=== PATIENT | female | born 1995 | race Caucasian/White ===

== ENCOUNTER 2019-06-23 12:03 | Emergency (ER) | payer MEDICAID, SELFPAY ==
[2019-06-23 12:05] VITALS: BP 155/97; PULSE 92; RESP 18; TEMP 36.7; BMI 41.8
--- NOTE | 2019-06-23 12:21 | ED_ITS ---
Entered by Melissa Schwartz, acting as scribe for Jun 23, 2019 12:03 HPI - Dizziness General: Chief Complaint: Dizziness Stated Complaint: 7 weeks preg and dizzyness Time Seen by Provider: 06/23/19 12:21 Source: patient Mode of arrival: ambulatory Limitations: no limitations History of Present Illness: HPI Narrative: 23 yo Female presents to ED with complaint of dizziness. Pt states that she was at work last night when she got dizzy/light headed and almost fell. Pt states that she did fall another time last night but on a patient's mat so she didn't hit the floor. Pt states that she is 6-7 weeks . MD elicited complaint: dizziness, lightheadedness and near syncope Onset (ago): day(s) (last night) Timing: sudden onset Severity: mild Description: lightheadedness Exacerbating factors: nothing Relieving factors: nothing Associated symptoms: Denies chills, nausea or vomiting Review of Systems General: Reports: 10 or more systems reviewed and unremarkable except in HPI and below Const: Denies: fever or chills Card: Reports: lightheadedness GI: Denies: abdominal pain, nausea or vomiting PFSH ED PFSH: Statuses (acute, chronic, etc) shown below reflect problem list status as previously entered and may not be historically accurate Medical History (Acute) Surgical History (Updated 06/23/19 @ 12:36 by Melissa Schwartz) History of (Acute) Social History (Updated 06/23/19 @ 12:33 by Melissa Schwartz) Smoking and tobacco status: never smoked Second hand smoke exposure: No Female Reproductive History: Date of last menstrual period: 05/09/19 Physical Exam Const: COMMON NORMALS: no apparent distress, average body habitus, oriented x3, no limitations, healthy appearing, alert and well nourished HENMT: COMMON NORMALS: normocephalic, head/scalp atraumatic, hearing grossly normal bilaterally, external ears normal, EAC's normal, TM's normal bilaterally, external nose normal, nasal mucous membranes and turbinates normal, oropharynx normal, dentition normal and gingiva normal; oral mucous membranes not moist HEAD & SCALP: normocephalic and atraumatic NOSE: external nose normal and nasal mucous membranes and turbinates normal EXTERNAL EAR: Yes external ears normal EXTERNAL AUDITORY CANAL: EAC's normal TYMPANIC MEMBRANE: TM's normal bilaterally Eye: COMMON NORMALS: PERRL, EOMs intact bilaterally, conjunctivae normal, no scleral icterus, no papilledema, normal visual rapp by confrontation and fundi normal bilaterally CONJUNCTIVA: Yes conjunctivae normal PUPIL: Yes PERRL DIRECT OPHTHALMOSCOPY: Yes no papilledema and Yes fundi normal bilaterally Neck/C-Spine: COMMON NORMALS: full ROM, no lymphadenopathy, supple, no meni ngeal signs, no JVD, thyroid normal and no carotid bruits THYROID: thyroid normal Chest: COMMONS NORMALS: inspection of chest normal and palpation of chest normal Resp: COMMON NORMALS: normal respiratory effort, no retractions, no use of accessory muscles, clear to auscultation bilaterally and percussion normal AUSCULTATION: clear to auscultation bilaterally PERCUSSION: percussion normal Cardio: COMMON NORMALS: no JVD, regular rate, regular rhythm, S1 normal heart sound, S2 normal heart sound, no gallops, no clicks, no murmurs, no rub and peripheral pulses 2+ throughout RATE: regular rate RHYTHM: regular rhythm HEART SOUNDS: S1 normal and S2 normal PERIPHERAL PULSES: pulses 2+ throughout GI: COMMON NORMALS: normal to inspection, nondistended, normoactive bowel sounds, soft to palpation, non-tender, no hepatosplenomegaly, no masses and no bruits PALPATION: Yes soft and Yes no hepatosplenomegaly : COMMON NORMALS: Yes no CVA tenderness BLADDER/KIDNEY EXAM: Yes no CVA tenderness Back/Pelvis: COMMON NORMALS: no CVA tenderness, thoracic and lumbar spine normal to inspection, no thoracic nor lumbar tenderness, thoraco-lumbar ROM normal and straight leg raise negative bilaterally Extremity: COMMON NORMALS: normal to inspection, full ROM, normal capillary refill, no joint enlargement, no clubbing, cyanosis or edema, no calf tenderness and no pedal edema Neuro: COMMON NORMALS: oriented x3 SENSORIUM/ORIENTATION: Yes alert MENINGEAL SIGNS: Yes no meningeal signs Skin: COMMON NORMALS: no rashes or lesions noted, no wounds, skin turgor normal, no jaundice, no petechiae and no mottling GENERAL SKIN EXAM: no rashes or lesions noted and turgor normal Course Vital Signs: Vital signs: Vital Signs Temperature 98.0 F 06/23/19 12:05 Pulse Rate 86 06/23/19 13:34 Respiratory Rate 18 06/23/19 12:05 Blood Pressure 161/84 06/23/19 13:34 Pulse Oximetry 97 06/23/19 13:34 MDM - Dizziness Lab Data: Labs: Lab Results 06/23/19 06/23/19 06/23/19 Range/Units 12:55 13:13 13:13 WBC 11.6 H (4.0-10.0) 10^3/ uL RBC 4.37 (4.1-5.3) 10^6/u L Hgb 11.9 (11.5-15.3) g/dL Hct 36.9 L (37.0-47.0) % MCV 84.4 (81-99) fL MCH 27.2 L (28.0-34.0) pg MCHC 32.2 (30.0-36.0) g/dL RDW 14.9 (12.1-15.1) % Plt Count 311 (130-400) 10^3/c mm MPV 10.0 (7.4-10.4) fL Neut % (Auto) 72.4 % Lymph % (Auto) 20.2 % [place] % (Auto) 5.8 % Eos % (Auto) 0.9 % Baso % (Auto) 0.2 % Neut # (Auto) 8.4 H (1.8-7.7) 10^3/u L Lymph # (Auto) 2.4 (0.8-4.8) 10^3/u L [place] # (Auto) 0.7 (0.2-0.9) 10^3/u L Eos # (Auto) 0.1 (0.0-0.8) 10^3/u L Baso # (Auto) 0.0 (0.0-0.1) 10^3/u L Nucleated RBC % (a uto) 0 % Nucleated RBCs # 0.0 /100WBC Sodium 135 L (136-145) mmol/L Potassium 3.7 (3.5-5.1) mmol/L Chloride 100 (98-107) mmol/L Carbon Dioxide 24 (22-29) mmol/L Anion Gap 14.7 (5-19) BUN 12 (6-20) mg/dL Creatinine 0.6 (0.5-0.9) mg/dL GFR Calculation 125.0 (90-130) mL/min Glucose 92 (74-109) mg/dL Calcium 9.7 (8.6-10.0) mg/Dl Total Bilirubin 0.3 (0.15-1.2) mg/dL AST 10 (0-32) U/L ALT 13 (0-33) U/L Alkaline Phosphata se 95 (35-105) IU/L Total Protein 7.4 (6.6-8.7) g/dL Albumin 4.2 (3.5-5.2) g/dL Globulin 3.2 (1.3-4.6) g/dL Lipase 10 L (13-60) U/L Ser , [place] 88045.00 mIU/mL Urine Color Straw (Yellow) Urine Appearance Sl hazy (CLEAR) Urine pH 5 (5-7) Ur Specific Gravit y 1.020 (1.005-1.030) Urine Protein Neg (Negative) Urine Glucose (UA) Norm (Normal) Urine Ketones Negative (Negative) Urine Occult Blood Trace H (Negative) Urine Nitrate Negative (Negative) Urine Bilirubin Neg (NEGATIVE) Urine Urobilinogen Norm (Negative) mg/dL Ur Leukocyte Ivanna ase Negative (Negative) Imaging Data^: US: Radiologist's impression: [address] [address] Ultrasound Report Signed Patient: Graciela Cohen [facility]#: [id number] : 1995Acct:[id number] Age/Sex: 23 FADM Date: 06/23/19 Loc: ER Attending Dr: Ordering Physician: Marcin Porras DO Date of Service: 06/23/19 Procedure(s): US OB <=14 wk fetus w transvag Accession Number(s): [id number] cc: Marcin Porras DO~ PROCEDURE INFORMATION: Exam: US First Trimester, Transabdominal and US , Transvaginal Exam date and time: 06/23/2019 12:33 PM Age: 23 years old Clinical indication: Lmp or gestational age (in weeks): Lmp 11-20-19; Other: Dizziness; ; Additional info: with dizziness TECHNIQUE: Imaging protocol: Real-time transabdominal obstetrical ultrasound of the maternal pelvis and a first trimester , less than 14 weeks 0 days, with image documentation. Transvaginal imaging was used for better evaluation of the fetus and adnexa. COMPARISON: [facility] OB > 14 weeks 07/07/2017 1:59 PM FINDINGS: GESTATION: An intrauterine is present. Gestation: A normal-appearing yolk sac is identified. Heart rate: The heart rate is not well-defined. The nuclear medical technologist reports flickering . BIOMETRY: Estimated gestational age: Gestational age as measured by crown-rump length is 6 weeks 2 days. Evaluation is limited on this exam. MATERNAL: Uterus: Uterus 9.8 x 4.8 x 5.6 cm. Right adnexa: Right ovary 1.4 x 2.3 x 1.4 cm. Left adnexa: Left ovary 2.6 x 2.2 x 1.4 cm. US/US OB <=14 wk fetus w transvag IMPRESSION: 1. The heart rate is not well-defined. The nuclear medical technologist reports flickering . Followup serial beta hCGs and ultrasound is recommended. 2. Gestational age as measured by crown-rump length is 6 weeks 2 days. Evaluation is limited on this exam. Followup serial beta hCGs and ultrasound is recommended. Dictated By: Nitin Barton 06/23/19 1333 Signed By: Nitin Barton 06/23/19 1334 Discharge Plan Discharge Patient Disposition: Home, Self-Care Clinical Impression: Dizziness Qualifiers: Weeks of gestation: less than 8 weeks Qualified Code(s): Z3A.01 - Less than 8 weeks gestation of Condition: Stable Prescriptions: No Action 28-800 mg-mcg Tablet 1 tab PO DAILY RF: 0 ranitidine HCl 75 mg Tablet 75 mg PO DAILY RF: 0 Discharge Orders: Discharge Order (Routine); Ordered 06/23/19 Ordered By: Marcin Porras Referrals: Jimenez Stephens FNP [Family Provider] - Discharge Activity: Resume usual activity Patient Instructions: Lightheadedness (ED), Dizziness (ED), Coding Level of Care Code ED Tank Car Cleaner for g Fwd Exam Problem Focused The documentation recorded by the scribe, Harris,Melissa, accurately reflects the service I personally performed and the decisions made by me, Marcin Porras, Jun 23, 2019 12:03
--- NOTE | 2019-06-23 12:24 | USR_ITS ---
PROCEDURE INFORMATION: Exam: US First Trimester, Transabdominal and US , Transvaginal Exam date and time: 06/23/2019 12:33 PM Age: 23 years old Clinical indication: Lmp or gestational age (in weeks): Lmp 11-20-19; Other: Dizziness; ; Additional info: with dizziness TECHNIQUE: Imaging protocol: Real-time transabdominal obstetrical ultrasound of the maternal pelvis and a first trimester , less than 14 weeks 0 days, with image documentation. Transvaginal imaging was used for better evaluation of the fetus and adnexa. COMPARISON: [facility] [place] > 14 weeks 07/07/2017 1:59 PM FINDINGS: GESTATION: An intrauterine is present. Gestation: A normal-appearing yolk sac is identified. Heart rate: The heart rate is not well-defined. The technologist infectious disease reports flickering . BIOMETRY: Estimated gestational age: Gestational age as measured by crown-rump length is 6 weeks 2 days. Evaluation is limited on this exam. MATERNAL: Uterus: Uterus 9.8 x 4.8 x 5.6 cm. Right adnexa: Right ovary 1.4 x 2.3 x 1.4 cm. Left adnexa: Left ovary 2.6 x 2.2 x 1.4 cm. US/US OB <=14 wk fetus w transvag IMPRESSION: 1. The heart rate is not well-defined. The technologist infectious disease reports flickering . Followup serial beta hCGs and ultrasound is recommended. 2. Gestational age as measured by crown-rump length is 6 weeks 2 days. Evaluation is limited on this exam. Followup serial beta hCGs and ultrasound is recommended.
--- NOTE | 2019-06-23 12:34 | PC.NURSE ---
pt oriented to ER room. Pt on pulse ox and NIBP monitor. Pt reports feeling nauseated and light headed last night after eating sonic food
--- NOTE | 2019-06-23 12:40 | PC.NURSE ---
portable ultrasound at bedside
[2019-06-23 13:32] LABS: Basophils % 0.2 %; Eosinophils # 0.1 10^3/uL (0.0-0.8); Eosinophils % 0.9 %; Hematocrit 36.9 % (37.0-47.0); Hemoglobin 11.9 g/dL (11.5-15.3); Lymphocytes # 2.4 10^3/uL (0.8-4.8); Lymphocytes % 20.2 %; Mean Corpuscular HGB Conc 32.2 g/dL (30.0-36.0); Mean Corpuscular Hemoglobin 27.2 pg (28.0-34.0); Mean Corpuscular Volume 84.4 fL (81-99); Monocytes # 0.7 10^3/uL (0.2-0.9); Monocytes % 5.8 %; Neutrophils # 8.4 10^3/uL (1.8-7.7); Neutrophils % 72.4 %; Nucleated Red Blood Cells % 0 %; Platelet Count 311 10^3/cmm (130-400); Red Blood Count 4.37 10^6/uL (4.1-5.3); Red Cell Distribution Width 14.9 % (12.1-15.1); White Blood Count 11.6 10^3/uL (4.0-10.0)
[2019-06-23 13:34] VITALS: BP 161/84; PULSE 86; O2SAT 97
[2019-06-23 13:54] LABS: Bilirubin Urine Neg (NEGATIVE); Blood Urine Trace (Negative); Glucose Urine UA Norm (Normal); Ketones Urine Negative (Negative); Leukocyte Esterase Urine Negative (Negative); Nitrate Urine Negative (Negative); Protein Urine Neg (Negative); Urine Appearance SL Hazy (CLEAR); Urine Color Straw (Yellow); Urobilinogen Urine Norm (Negative); pH Urine 5 (5-7)
[2019-06-23 14:00] LABS: Alanine Aminotransferase 13 U/L (0-33); Albumin Level 4.2 g/dL (3.5-5.2); Alkaline Phosphatase 95 IU/L (35-105); Anion Gap 14.7 (5-19); Aspartate Amino Transferase 10 U/L (0-32); Blood Urea Nitrogen 12 mg/dL (6-20); Calcium 9.7 mg/Dl (8.6-10.0); Carbon Dioxide 24 mmol/L (22-29); Chloride 100 mmol/L (98-107); Globulin 3.2 g/dL (1.3-4.6); Glucose 92 mg/dL (74-109); Lipase 10 U/L (13-60); Potassium 3.7 mmol/L (3.5-5.1); Sodium 135 mmol/L (136-145); Total Bilirubin 0.3 mg/dL (0.15-1.2); Total Protein 7.4 g/dL (6.6-8.7)
[2019-06-23 14:07] LABS: Add Urine Culture? No; Bacteria Urine 1+; Mucus Urine TRACE; RBC Urine 0-4 /hpf (0-2)
[2019-06-23 14:10] VITALS: BP 144/74; PULSE 88; O2SAT 98
== END 2019-06-23 14:10 | disposition home or self-care (01) ==
PROVIDERS: Emergency Provider Family Medicine; Family Provider Registered Nurse
DX: O26.891 Other specified pregnancy related conditions, first trimester (principal); R42 Dizziness and giddiness; Z3A.01 Less than 8 weeks gestation of pregnancy
CPT/HCPCS: 36415; 76801; 76817; 80053; 81001; 83690; 84702; 85025; 99282; A9270

== ENCOUNTER 2019-08-15 14:20 | Emergency (ER) | payer MEDICAID, SELFPAY ==
[2019-08-15 14:28] VITALS: BP 147/94; PULSE 110; RESP 16; TEMP 36.7; O2SAT 98; BMI 42.9
[2019-08-15 15:05] LABS: Eosinophils # 0.1 10^3/uL (0.0-0.8); Eosinophils % 1.2 %; Hematocrit 32.6 % (37.0-47.0); Hemoglobin 10.7 g/dL (11.5-15.3); Lymphocytes # 1.4 10^3/uL (0.8-4.8); Lymphocytes % 24.9 %; Mean Corpuscular HGB Conc 32.8 g/dL (30.0-36.0); Mean Corpuscular Hemoglobin 27.6 pg (28.0-34.0); Mean Platelet Volume 9.7 fL (7.4-10.4); Monocytes # 0.5 10^3/uL (0.2-0.9); Monocytes % 8.5 %; Neutrophils # 3.7 10^3/uL (1.8-7.7); Neutrophils % 63.7 %; Nucleated Red Blood Cells % 0 %; Platelet Count 189 10^3/cmm (130-400); Red Blood Count 3.88 10^6/uL (4.1-5.3); Red Cell Distribution Width 15.8 % (12.1-15.1); White Blood Count 5.8 10^3/uL (4.0-10.0)
[2019-08-15 15:31] LABS: Alanine Aminotransferase 23 U/L (0-33); Albumin Level 4.1 g/dL (3.5-5.2); Alkaline Phosphatase 80 IU/L (35-105); Anion Gap 16.7 (5-19); Aspartate Amino Transferase 20 U/L (0-32); Blood Urea Nitrogen 8 mg/dL (6-20); Calcium 9.8 mg/dL (8.5-10.5); Carbon Dioxide 23 mmol/L (22-29); Chloride 101 mmol/L (98-107); Glucose 116 mg/dL (65-115); Potassium 3.7 mmol/L (3.5-5.1); Sodium 137 mmol/L (136-145); Total Bilirubin 0.7 mg/dL (0.15-1.2); Total Protein 7.1 g/dL (6.6-8.7)
== END 2019-08-15 19:42 | disposition left against medical advice (07) ==
PROVIDERS: Physician Assistant; Emergency Provider Family Medicine; Family Provider Registered Nurse
DX: O99.89 Other specified diseases and conditions complicating pregnancy, childbirth and the puerperium (principal); R31.9 Hematuria, unspecified; Z3A.14 14 weeks gestation of pregnancy; Z53.21 Procedure and treatment not carried out due to patient leaving prior to being seen by health care provider
CPT/HCPCS: 36415; 80053; 85025; 99281; 99282

== ENCOUNTER 2019-12-07 11:57 | Outpatient (CLI) | payer MEDICAID, SELFPAY ==
[2019-12-07 12:00] VITALS: BMI 42.9
[2019-12-07 12:05] VITALS: BP 147/77; PULSE 101
[2019-12-07 12:06] VITALS: RESP 17; TEMP 36.8
[2019-12-07 12:24] VITALS: BP 138/71; PULSE 98
[2019-12-07 12:45] VITALS: BP 117/64; PULSE 96
[2019-12-07 12:50] VITALS: BP 117/64; PULSE 96
[2019-12-07 13:05] LABS: Total Volume, Urine 1000 mL
[2019-12-07 14:55] LABS: Urine Total Protein 24 Hour 28.9 mg/dL (0-150)
== END 2019-12-07 12:50 | disposition home or self-care (01) ==
LOC: OPOB 12:05
PROVIDERS: Visit Provider Family Medicine
DX: O26.899 Other specified pregnancy related conditions, unspecified trimester (principal); Z3A.00 Weeks of gestation of pregnancy not specified
CPT/HCPCS: 59025; 84156; 99211

== ENCOUNTER 2019-12-21 14:03 | Outpatient (CLI) | payer MEDICAID, SELFPAY ==
[2019-12-21 14:10] VITALS: BP 146/80; PULSE 96; RESP 18
[2019-12-21 14:25] VITALS: BP 147/72; PULSE 98
[2019-12-21 14:40] VITALS: BP 123/70; PULSE 101
[2019-12-21 14:44] VITALS: BMI 42.9
[2019-12-21 15:13] VITALS: BP 123/70; PULSE 101
== END 2019-12-23 20:55 | disposition home or self-care (01) ==
LOC: OPOB 14:04 → OBGYN 14:07
PROVIDERS: Visit Provider Family Medicine
DX: O16.9 Unspecified maternal hypertension, unspecified trimester (principal); Z3A.00 Weeks of gestation of pregnancy not specified
CPT/HCPCS: 59025; 99211

== ENCOUNTER 2019-12-24 12:25 | Outpatient (CLI) | payer MEDICAID, SELFPAY ==
[2019-12-24 13:00] VITALS: BP 137/84; PULSE 96
[2019-12-24 13:03] VITALS: RESP 18; TEMP 36.3
[2019-12-24 13:04] VITALS: BMI 43.0
[2019-12-24 13:11] VITALS: BP 130/69; PULSE 94
== END 2019-12-24 13:15 | disposition home or self-care (01) ==
LOC: OPOB 12:32 → OBGYN 12:33
PROVIDERS: Visit Provider Family Medicine
DX: O16.9 Unspecified maternal hypertension, unspecified trimester (principal); Z3A.00 Weeks of gestation of pregnancy not specified
CPT/HCPCS: 59025; 99211

== ENCOUNTER 2019-12-27 12:06 | Outpatient (CLI) | payer MEDICAID, SELFPAY ==
[2019-12-27 12:24] VITALS: BP 141/63; PULSE 97; RESP 20; TEMP 36.6
[2019-12-27 12:37] VITALS: BMI 43.0
[2019-12-27 12:39] VITALS: BP 119/62; PULSE 104
[2019-12-27 12:54] VITALS: BP 114/69; PULSE 98
== END 2019-12-27 13:00 | disposition home or self-care (01) ==
LOC: OPOB 12:07 → OBGYN 12:16
PROVIDERS: Visit Provider Family Medicine
DX: O16.9 Unspecified maternal hypertension, unspecified trimester (principal); Z3A.00 Weeks of gestation of pregnancy not specified
CPT/HCPCS: 59025; 99211

== ENCOUNTER 2019-12-31 12:40 | Outpatient (CLI) | payer MEDICAID, SELFPAY ==
[2019-12-31 13:02] VITALS: BP 146/82; PULSE 101; RESP 16; TEMP 36.7
[2019-12-31 13:16] VITALS: BP 144/69; PULSE 112; RESP 17
[2019-12-31 13:30] VITALS: BP 151/75; PULSE 107; RESP 17
[2019-12-31 14:23] VITALS: BMI 42.9
== END 2019-12-31 13:33 | disposition home or self-care (01) ==
LOC: OPOB 12:49 → OBGYN 12:50
PROVIDERS: Visit Provider Family Medicine
DX: O16.9 Unspecified maternal hypertension, unspecified trimester (principal); Z3A.00 Weeks of gestation of pregnancy not specified
CPT/HCPCS: 59025

== ENCOUNTER 2020-01-04 12:50 | Outpatient (CLI) | payer MEDICAID, SELFPAY ==
[2020-01-04 12:50] VITALS: BMI 43.6
[2020-01-04 13:12] VITALS: BP 135/79; PULSE 100; RESP 16; TEMP 37.2
[2020-01-04 14:18] VITALS: BP 120/74; PULSE 94
[2020-01-04 15:40] LABS: Total Volume, Urine 1050 mL
[2020-01-04 15:56] LABS: Total Protein 24 Hour Urine 426.3 mg/24HR (0-150); Urine Total Protein 24 Hour 40.6 mg/dL (0-150)
[2020-01-04 15:59] VITALS: BP 148/77; PULSE 100
[2020-01-04 16:00] VITALS: BP 148/77; PULSE 100; RESP 16; TEMP 36.7
[2020-01-04 16:05] VITALS: BP 148/77; PULSE 100; RESP 16; TEMP 36.7
== END 2020-01-04 16:05 | disposition home or self-care (01) ==
LOC: OPOB 12:58 → OBGYN 01-07 09:39
PROVIDERS: Visit Provider Family Medicine
DX: O26.899 Other specified pregnancy related conditions, unspecified trimester (principal); Z3A.00 Weeks of gestation of pregnancy not specified
CPT/HCPCS: 59025; 84156; 99211

== ENCOUNTER 2020-01-07 12:44 | Outpatient (CLI) | payer MEDICAID, SELFPAY ==
[2020-01-07 12:55] VITALS: BP 0/0
[2020-01-07 12:56] VITALS: BP 141/76; PULSE 120
[2020-01-07 13:00] VITALS: BMI 43.4
[2020-01-07 13:19] VITALS: BP 126/75; PULSE 114
[2020-01-07 13:33] VITALS: BP 126/75; PULSE 114
== END 2020-01-07 13:25 | disposition home or self-care (01) ==
LOC: OPOB 12:46 → OBGYN 12:47
PROVIDERS: Visit Provider Family Medicine
DX: O26.899 Other specified pregnancy related conditions, unspecified trimester (principal); Z3A.00 Weeks of gestation of pregnancy not specified
CPT/HCPCS: 59025; 99211

== ENCOUNTER 2020-01-10 13:43 | Outpatient (CLI) | payer MEDICAID, SELFPAY ==
[2020-01-10 14:07] VITALS: RESP 18; TEMP 36.9
[2020-01-10 14:09] VITALS: BMI 43.6
[2020-01-10 14:26] VITALS: BP 118/63; BP 127/72; PULSE 102; PULSE 96
[2020-01-10 14:31] VITALS: BP 125/67; PULSE 98
[2020-01-10 15:13] VITALS: BP 125/67; PULSE 98; RESP 18; TEMP 36.9
== END 2020-01-10 14:42 | disposition home or self-care (01) ==
LOC: OPOB 13:52 → OBGYN 15:14
PROVIDERS: Family Provider Registered Nurse; Visit Provider Family Medicine
DX: O13.9 Gestational [pregnancy-induced] hypertension without significant proteinuria, unspecified trimester (principal); Z3A.00 Weeks of gestation of pregnancy not specified
CPT/HCPCS: 59025

== ENCOUNTER 2020-01-14 11:55 | Outpatient (CLI) | payer MEDICAID, SELFPAY ==
[2020-01-14 11:55] VITALS: BMI 43.4
[2020-01-14 12:13] VITALS: BP 133/93; PULSE 116
[2020-01-14 12:57] VITALS: BP 117/75; PULSE 96
[2020-01-14 13:12] VITALS: BP 134/86; PULSE 105
[2020-01-14 14:32] VITALS: BP 134/86; PULSE 105; RESP 18; TEMP 36.9
== END 2020-01-14 13:20 | disposition home or self-care (01) ==
LOC: OPOB 12:10 → OBGYN 12:11
PROVIDERS: Visit Provider Family Medicine
DX: O13.9 Gestational [pregnancy-induced] hypertension without significant proteinuria, unspecified trimester (principal); Z3A.00 Weeks of gestation of pregnancy not specified
CPT/HCPCS: 59025; 99211

== ENCOUNTER 2020-01-17 11:56 | Outpatient (CLI) | payer MEDICAID, SELFPAY ==
[2020-01-17 12:08] VITALS: BP 133/72; PULSE 116
[2020-01-17 12:16] VITALS: BMI 43.0
[2020-01-17 12:33] VITALS: TEMP 37.3
[2020-01-17 12:38] VITALS: BP 127/78; PULSE 100
[2020-01-17 12:53] VITALS: BP 119/64; PULSE 98
[2020-01-17 13:08] VITALS: BP 115/73; PULSE 94
[2020-01-17 13:22] VITALS: BP 0/0
== END 2020-01-17 13:23 | disposition home or self-care (01) ==
LOC: OPOB 12:05 → OBGYN 12:06
PROVIDERS: Visit Provider Family Medicine
DX: O26.899 Other specified pregnancy related conditions, unspecified trimester (principal); Z3A.00 Weeks of gestation of pregnancy not specified
CPT/HCPCS: 59025; 99211

== ENCOUNTER 2020-01-21 15:56 | Outpatient (CLI) | payer MEDICAID, SELFPAY ==
[2020-01-21 16:01] VITALS: BMI 43.2
== END 2020-01-21 16:37 | disposition home or self-care (01) ==
LOC: OPOB 15:57
PROVIDERS: Family Provider Registered Nurse; Visit Provider Family Medicine
DX: O26.899 Other specified pregnancy related conditions, unspecified trimester (principal); Z3A.00 Weeks of gestation of pregnancy not specified
CPT/HCPCS: 59025; 87491; 87591

== ENCOUNTER 2020-01-23 05:42 | Inpatient (IN) | payer MEDICAID, SELFPAY ==
[2020-01-23] VITALS (19 sets, daily range): BP systolic 101–133; BP diastolic 56–85; PULSE 63–112; RESP 15–20; TEMP 36.4–37.2; O2SAT 96–99; BMI 39.4
[2020-01-23 06:34] LABS: Basophils % 0.2 %; Eosinophils # 0.1 10^3/uL (0.0-0.8); Hemoglobin 10.6 g/dL (11.5-15.3); Lymphocytes # 2.5 10^3/uL (0.8-4.8); Lymphocytes % 23.3 %; Mean Corpuscular HGB Conc 32.1 g/dL (30.0-36.0); Mean Corpuscular Hemoglobin 28.4 pg (28.0-34.0); Mean Corpuscular Volume 88.5 fL (81-99); Mean Platelet Volume 10.5 fL (7.4-10.4); Monocytes # 0.7 10^3/uL (0.2-0.9); Neutrophils # 7.17 10^3/uL (1.8-7.7); Neutrophils % 67.8 %; Nucleated Red Blood Cells % 0 %; Platelet Count 263 10^3/cmm (130-400); Red Blood Count 3.73 10^6/uL (4.1-5.3); Red Cell Distribution Width 16.4 % (12.1-15.1); White Blood Count 10.6 10^3/uL (4.0-10.0)
[2020-01-23] MEDS: citric acid-sodium citrate 30 mL UDC PO (07:18)
[2020-01-23] MEDS: metoclopramide 5 mg/mL SDV 2 mL 10 MG IVP (07:18)
[2020-01-23] MEDS: famotidine 20 mg/2 mL INJ IVP (07:19)
[2020-01-23] MEDS: lactated ringers 1,000 ML 999 ML IV (07:35)
--- NOTE | 2020-01-23 09:05 | P.HP_ITS ---
Providers/Chief Complaint Admitting Physician: Joycelyn Lagos MD Chief Complaint: scheduled History of Present Illness Graciela Reinoso is a 24 year old female G4, P2 at 37 weeks gestation who is here for a scheduled repeat section secondary to mild preeclampsia. The patient had elevated blood pressures prior to 20 weeks gestation and was diagnosed as having chronic hypertension. (Her blood pressure at 8 weeks was 152/92). She had a baseline 24-hour urine protein of 215. The patient was supposed to be taking methyldopa 250 mg p.o. twice daily and her blood pressures were 140s over 80s. However at 32 weeks gestation she had blood pressure of 170/98. She claimed at that visit that she forgot to take her blood pressure med that morning. Since she was 32 weeks gestation at that point she was started on twice weekly NSTs due to her chronic hypertension. She also had repeat [facility] labs with 24-hour urine protein of 289. When she reported to labor and delivery for her NSTs her blood pressures were either within normal limits or only mildly elevated 140s over 80s. At her 34 wk visit her BP was 160/90 and she had 3+ protein in her urine. Her repeat 24 hour urine protein returned elevated at 429. The patient was an interesting case because during her office visits her blood pressures would be in the severe range however when she would be at labor and delivery for her NSTs her blood pressures would be in the mild range. She had no other symptoms and was feeling well so decision was made to continue the until 37 weeks gestation when scheduled section was planned. Review of Systems Const: Denies: fever(s) or chills Eyes: Denies: change in vision or blurry vision ENMT: Denies: throat pain Card: Reports: edema and dyspnea on exertion; Denies: chest pain Resp: Reports: dyspnea; Denies: productive cough GI: Denies: abdominal pain or change in bowel habits : Reports: urinary frequency; Denies: flank pain, dysuria, vaginal bleeding or vaginal discharge Skin/Breast: Denies: rash Neuro: Denies: headache(s) or weakness in extremities Spike/Lymph: Denies: easy bruising or easy bleeding All/Imm: Denies: urticaria or throat swelling Medications/Allergies Home Medications Medication Instructions Recorded Confirmed Last Taken Type 1 tab PO DAILY 12/31/19 01/17/20 01/17/20 11:45 History methyldopa 250 mg PO BID 12/31/19 01/17/20 01/17/20 08:00 History Allergies Allergy/AdvReac Type Severity Reaction Status Date / Time bee venom protein (honey bee) Allergy ALGY-Anaphy Verified 12/31/19 15:47 laxis cefaclor [From Ceclor] Allergy ALGY-Hives Verified 12/31/19 15:47 egg Allergy ADR-Diarrhe Verified 12/31/19 15:47 a PFSH Acute PFSH: Medical History (Updated 01/23/20 @ 17:22 by Joycelyn Lagos MD) Chronic hypertension affecting Surgical History (Updated 01/23/20 @ 17:19 by Joycelyn Lagos MD) Previous section Social History (Updated 01/23/20 @ 17:21 by Joycelyn Lagos MD) Smoking and tobacco status: never smoked Alcohol intake: never Substance/Drug Use: never Female Reproductive History: : 4 Para: 2 Spontaneous abortions: Yes (1) Other female reproductive history: first c/s for FTP and NRFHT Vitals/I&O/Wt Last Vital Signs Temp 98.9 F 01/23/20 05:53 Pulse 112 H 01/23/20 05:53 Resp 16 01/23/20 05:53 BP 133/78 01/23/20 05:53 Weight last 48 hrs Weight 252 lb Physical Exam Const: COMMON NORMALS: no acute distress and alert GENERAL APPEARANCE: cooperative and comfortable HENMT: COMMON NORMALS: normocephalic and atraumatic Eye: COMMON NORMALS: Equal, round and reactive pupils present and EOMs intact bilaterally Chest: COMMONS NORMALS: normal inspection of the chest Resp: COMMON NORMALS: normal respiratory effort, No retractions and No use of accessory muscles Cardio: COMMON NORMALS: regular rate and regular rhythm GI: COMMON NORMALS: Soft to palpation and non-tender Extremity: GENERAL: No calf tenderness and Yes edema Neuro: COMMON NORMALS: patient oriented x3 Psych: COMMON NORMALS: mental status grossly normal and Normal thought process present Urinary Catheter Management^: Freitas: Cath Placed During This Visit: yes Reason for Continuing Indwelling Catheter: Perioperative Use in Selected Surgeries Urinary Catheter Date of Insertion: 01/23/20 Urinary Catheter Time of Insertion: 07:40 Data : 01/23/20 06:12 A&P Assessment and plan (1) Previous section: Proceed with repeat section Status: Acute (2) Chronic hypertension affecting : Status: Acute (3) Mild pre-eclampsia in third trimester: Scheduled repeat section at 37 weeks Status: Acute Attestations Medical Necessity Statement*: Surgery and and post operative care Coding Level of Care Code Acute Director Educational Radio for Chg Fwd Diagnoses Previous section Z98.891 Chronic hypertension affecting O10.919 Mild pre-eclampsia in third trimester O14.03
--- NOTE | 2020-01-23 09:06 | PM.OP ---
Operative Report Date of procedure: January 23, 2020 Pre-op Diagnosis: Mild preeclampsia Pre-op Diagnosis: IUP at 37 weeks gestation Repeat section Post-op Diagnosis: Same Procedure Done: Primary low transverse section via Pfannenstiel skin incision Specimens removed/disposition: Vertex male infant, weight 3515 g, 7 pounds 12 ounces, Apgars 9 and 9 Pathology: none sent Anesthesia: Other (Spinal) Estimated blood loss (mL): 500 IV fluids (mL): 700 Urine output (mL): 50 Complications: None Condition: stable Procedure: After informed consent patient was taken to the OR where spinal anesthesia was administered. She was prepped and draped in normal sterile fashion in dorsal supine position with a left lateral tilt. A Pfannenstiel skin incision was made through her prior scar and carried through to the underlying layer of fascia sharply. The fascial incision was then extended laterally using the Mayos. The fascia was grasped with [place] clamps and dissected off taking care to avoid injury to the underlying tissue. There was a decent amount of fascial scar tissue. The peritoneum and omentum were slightly bulging through the midline. This opening was then used 2 separate to the rectus muscles. There was a lot of dense scar tissue at the midline of the rectus muscles that was carefully dissected using Mayos. The bladder blade was then inserted and the vesicouterine peritoneum was identified and entered sharply using the Metzenbaums. Bladder flap was created digitally and the bladder blade was reinserted. Uterine incision was made in a transverse fashion in the lower uterine segment. Rupture of membranes was performed sharply with a copious amount of clear fluid. Attempt was made to deliver the 's head but it was felt that the incisional opening was too narrow at the level of the rectus muscles. The Mayos were used to bisect the medial rectus muscles. The infant's head was then delivered atraumatically with bulb suction of the mouth and nares at delivery. The rest of the was delivered without complication. There was a loose body cord. There was strong cry upon delivery. The cord was clamped and cut and the infant was handed to the waiting pediatric nurse. The placenta was delivered grossly intact and normal to inspection. The uterus was then exteriorized from the abdomen and a dry sponge was used to clear the uterus of clots and debris. The uterine incision was reinspected for hemostasis. Due to the amount of scar tissue at the midline rectus muscles I was able to reapproximate the rectus muscles using 4-0 and 3-0 Vicryl, using the scar tissue for reapproximation. The subfascial tissue was then inspected for hemostasis and any small bleeders were coagulated using the Bovie. The fascia was then reapproximated using 0 Vicryl in a running fashion. The subcutaneous tissue was inspected for hemostasis and any small bleeders were coagulated using the Bovie. The subcutaneous tissue was then reapproximated using 4-0 Vicryl in a running fashion. The skin was then reapproximated using 4-0 Vicryl on a [place] needle. Steri-Strips and a pressure bandage were applied and patient went to recovery in stable condition Sponge instrument and needle counts were correct
[2020-01-23] MEDS: dextrose 5%-lactated ringers 1,000 ML 125 ML IV (11:53)
[2020-01-23] MEDS: ketorolac 30 mg/mL INJ IVP ×3 (11:53→22:17)
[2020-01-23] MEDS: ondansetron 2 mg/ML SDV 2 mL 4 MG IVP (12:02)
--- NOTE | 2020-01-23 13:38 | PC.NURSE ---
Patient sat on side of bed, at first stating she felt some dizziness, but then it went away quickly. Patient denied any weakness or lightheadedness after sitting on the side of the bed for several minutes with her feet on the floor. Patient stood at bedside and denied any dizziness, weakness or lightheadedness. Patient then ambulated to the wheelchair without difficulty. Patient sat in wheelchair, and then after about a minute she started to feel nauseous. Patient then vomited several times. This literary writer then went to call the physician to get orders, and when this literary writer got back into the room, patient was no longer vomiting and said she was ok, just wanted to go see her baby. Patient chose to hold off on the suppository that was ordered, due to her already being in the wheelchair and no longer feeling nauseous. Patient then was wheeled to the nursery to see baby. Patient tolerated well, denying any dizziness or feeling nauseated on the way to the nursery. Patient left in the nursery at baby's bedside.
[2020-01-23] MEDS: docusate sodium 100 mg Capsule PO (17:21)
--- NOTE | 2020-01-23 20:40 | PC.NURSE ---
Patient has ambulated to nursery with stand by assist. Tolerates activity well. CRUZ RN
--- NOTE | 2020-01-23 20:50 | PC.NURSE ---
Patient states she has passed flatus. CRUZ RN
--- NOTE | 2020-01-23 22:30 | PC.NURSE ---
Patient has ambulated OBGYN floor x 3.
--- NOTE | 2020-01-24 00:11 | PC.NURSE ---
Patient is up to walk to nursery to see . She stated during rounding she has passed flatus multiple times since last rounding. CRUZ RN
--- NOTE | 2020-01-24 00:30 | PC.NURSE ---
Catheter removed per protocol. CRUZ RN
[2020-01-24 01:09] LABS: Hematocrit 33.4 % (37.0-47.0); Hemoglobin 10.6 g/dL (11.5-15.3); Mean Corpuscular HGB Conc 31.7 g/dL (30.0-36.0); Mean Corpuscular Hemoglobin 28.1 pg (28.0-34.0); Mean Corpuscular Volume 88.6 fL (81-99); Mean Platelet Volume 10.2 fL (7.4-10.4); Platelet Count 277 10^3/cmm (130-400); Red Blood Count 3.77 10^6/uL (4.1-5.3); Red Cell Distribution Width 16.6 % (12.1-15.1); White Blood Count 12.4 10^3/uL (4.0-10.0)
[2020-01-24 06:34] VITALS: BP 118/71; PULSE 101; RESP 15; TEMP 36.9; O2SAT 100
[2020-01-24] MEDS: HYDROcodone-acetaminophen 5-325 mg Tablet PO ×3 (07:50→22:16)
[2020-01-24] MEDS: prenatal vitamin Capsule 1 CAP PO (07:50)
[2020-01-24] MEDS: docusate sodium 100 mg Capsule PO ×2 (09:06→17:12)
[2020-01-24 11:19] VITALS: BP 122/80; PULSE 87; RESP 18; TEMP 37
--- NOTE | 2020-01-24 12:30 | P.PN_ITS ---
ATMOSPHERIC TECHNICIAN Subjective Subjective: Interval history: Still a little sore, bleeding is rather light. She is passing flatus and tolerating a regular diet Labor: Amniotic Membrane Status: Intact Monitor Mode: External Contraction Pattern: Absent Status: Category l Vitals/I&O/Wt Last Vital Signs Temp 98.6 F 01/24/20 11:19 Pulse 87 01/24/20 11:19 Resp 18 01/24/20 11:19 BP 122/80 01/24/20 11:19 Pulse Ox 100 01/24/20 06:34 01/23/20 01/24/20 01/24/20 22:59 06:59 14:59 Intake Total 240 / 604.583 Output Total 500 / 715 800 / 1515 Balance -260 / -110.417 -800 / -910.417 Weight last 48 hrs Weight 252 lb Physical Exam Const: COMMON NORMALS: no acute distress GENERAL APPEARANCE: cooperative and comfortable HENMT: COMMON NORMALS: normocephalic and atraumatic HEAD & SCALP: normocephalic and atraumatic Eye: COMMON NORMALS: Equal, round and reactive pupils present and EOMs intact bilaterally PUPIL: Yes Equal, round and reactive pupils present Chest: COMMONS NORMALS: normal inspection of the chest Resp: COMMON NORMALS: normal respiratory effort and No retractions Cardio: COMMON NORMALS: regular rate and regular rhythm RATE: regular rate RHYTHM: regular rhythm GI: COMMON NORMALS: Soft to palpation INSPECTION: Yes incision (Clean and intact, Steri-Strips are rather moist) PALPATION: Yes Soft to palpation, Yes Tenderness to palpation present (GI) (Appropriate postoperative tenderness), No Guarding due to palpation present (GI) and No Rigid due to palpation Extremity: COMMON NORMALS: no calf tenderness GENERAL: Yes edema Urinary Catheter Management^: Freitas: Cath Placed During This Visit: yes Reason for Continuing Indwelling Catheter: Perioperative Use in Selected Surgeries Urinary Catheter Date of Insertion: 01/23/20 Urinary Catheter Time of Insertion: 07:40 Data : 01/23/20 06:12 Micro: Microbiology 01/23/20 06:12 Chlamydia trachomatis ([facility]) - Final Urine Random Neisseria gonorrhoeae ([facility]) - Final A&P Assessment and plan (1) Status post repeat low transverse section: Postop day #1 doing well. Continue routine postoperative care. Discussed with the patient keeping the incision clean and dry. I suggested she put a washcloth or pad under her pannus and change as needed. Status: Acute (2) Mild pre-eclampsia in third trimester: Status: Acute (3) Chronic hypertension affecting : Blood pressures have been within normal limits since delivery. She has not required any antihypertensive medicine Status: Acute Attestations Medical Necessity Statement*: Routine postoperative care Coding Level of Care Code Acute Diesel Tractor Engine Mechanic for Chg Fwd Diagnoses Status post repeat low transverse section Z98.891 Mild pre-eclampsia in third trimester O14.03 Chronic hypertension affecting O10.919
[2020-01-24 17:10] VITALS: BP 131/82; PULSE 88; RESP 16; TEMP 36.8; O2SAT 98
[2020-01-24 21:00] VITALS: BP 140/98; PULSE 88; RESP 18; TEMP 36.8
[2020-01-24 21:30] VITALS: BP 130/66
[2020-01-25 06:00] VITALS: BP 131/85; PULSE 80; RESP 18; TEMP 36.8
[2020-01-25] MEDS: HYDROcodone-acetaminophen 5-325 mg Tablet PO (06:40)
--- NOTE | 2020-01-25 08:06 | PC.NURSE ---
BOTH BEDS IN PT ROOM HAD LINEN CHANGES. CLEAN TOWELS AND WASHCLOTHS GIVEN TO PATIENT.
[2020-01-25] MEDS: docusate sodium 100 mg Capsule PO ×2 (08:58→17:21)
[2020-01-25] MEDS: prenatal vitamin Capsule 1 CAP PO (08:58)
--- NOTE | 2020-01-25 10:04 | P.PN_ITS ---
Subjective Subjective: Interval history: Doing well. Tolerating a regular diet. Pain is controlled. Vitals/I&O/Wt Last Vital Signs Temp 98.3 F 01/25/20 06:00 Pulse 80 01/25/20 06:00 Resp 18 01/25/20 06:00 BP 131/85 01/25/20 06:00 Pulse Ox 98 01/24/20 17:10 01/24/20 01/25/20 01/25/20 22:59 06:59 14:59 Intake Total 120 / 120 740 / 860 Balance 120 / 120 740 / 860 Physical Exam Const: COMMON NORMALS: no acute distress GENERAL APPEARANCE: cooperative and comfortable HENMT: COMMON NORMALS: normocephalic and atraumatic HEAD & SCALP: n ormocephalic and atraumatic Eye: COMMON NORMALS: Equal, round and reactive pupils present and EOMs intact bilaterally PUPIL: Yes Equal, round and reactive pupils present Chest: COMMONS NORMALS: normal inspection of the chest Resp: COMMON NORMALS: normal respiratory effort and No retractions Cardio: COMMON NORMALS: regular rate and regular rhythm RATE: regular rate RHYTHM: regular rhythm GI: COMMON NORMALS: Soft to palpation INSPECTION: Yes other (Incision clean dry and intact) AUSCULTATION: Yes normoactive bowel sounds PALPATION: Yes Soft to palpation and Yes Tenderness to palpation present (GI) (Mild appropriate postoperative) Extremity: COMMON NORMALS: no calf tenderness GENERAL: Yes edema Urinary Catheter Management^: Freitas: Cath Placed During This Visit: yes Reason for Continuing Indwelling Catheter: Perioperative Use in Selected Surgeries Urinary Catheter Date of Insertion: 01/23/20 Urinary Catheter Time of Insertion: 07:40 Data : 01/23/20 06:12 A&P Assessment and plan (1) Status post repeat low transverse section: Postop day #2 doing well. Continue routine postoperative care Status: Acute (2) Mild pre-eclampsia in third trimester: Status: Acute (3) Chronic hypertension affecting : Status: Acute (4) Previous section: Status: Acute Attestations Medical Necessity Statement*: Routine postoperative and care Coding Level of Care Code Acute Data Management Manager for Chg Fwd Diagnoses Status post repeat low transverse section Z98.891 Mild pre-eclampsia in third trimester O14.03 Chronic hypertension affecting O10.919 Previous section Z98.891
[2020-01-25 10:52] VITALS: BP 123/83; PULSE 99; RESP 16; TEMP 36.7; O2SAT 98
[2020-01-25 16:03] VITALS: BP 135/79; PULSE 81; RESP 18; TEMP 36.4; O2SAT 97
[2020-01-25 22:23] VITALS: BP 135/84; PULSE 94; RESP 18; TEMP 37
[2020-01-26 05:43] VITALS: BP 125/86; PULSE 84; RESP 18; TEMP 36.8
[2020-01-26] MEDS: prenatal vitamin Capsule 1 CAP PO (11:11)
[2020-01-26] MEDS: measles,mumps,rubella pf Vial (w/diluent) 0.5 ML SUBCUT (11:12)
[2020-01-26] MEDS: docusate sodium 100 mg Capsule PO (11:12)
--- NOTE | 2020-01-26 12:29 | P.DS_ITS ---
Discharge Providers DENTAL CHAIRSIDE ASSISTANT Date of Admission: 01/23/20 05:42 Date of Discharge: 01/26/20 Attending Provider at Admission: Joycelyn Lagos MD Attending Provider at Discharge: Joycelyn Lagos MD Diagnoses at Discharge Discharge Diagnosis (1) Status post repeat low transverse section: Status: Acute (2) Mild pre-eclampsia in third trimester: Status: Acute (3) Chronic hypertension affecting : Status: Acute (4) Previous section: Status: Acute Reason for Visit Reason for Visit: scheduled Hospital Course Hospital Course: This is a 24-year-old who was admitted for a scheduled repeat section at 37 weeks gestation secondary to preeclampsia. There were no complications during the procedure. she did very well. The required special care under the [facility] so mother was kept inpatient for a good 3 days prior to discharge. She was ambulating, tolerating a regular diet, had good pain control and was requesting discharge home. Information Peripartum Data: Infant Delivery Method: Section Physical Exam Const: COMMON NORMALS: no acute distress GENERAL APPEARANCE: cooperative and comfortable HENMT: COMMON NORMALS: normocephalic and atraumatic HEAD & SCALP: normocephalic and atraumatic FACE & SINUS: normal facial exam Eye: COMMON NORMALS: Equal, round and reactive pupils present and EOMs intact bilaterally PUPIL: Yes Equal, round and reactive pupils present Chest: COMMONS NORMALS: normal inspection of the chest Resp: COMMON NORMALS: normal respiratory effort, No retractions and clear to auscultation bilaterally AUSCULTATION: clear to auscultation bilaterally Cardio: COMMON NORMALS: regular rate and regular rhythm RATE: regular rate RHYTHM: regular rhythm GI: COMMON NORMALS: Soft to palpation INSPECTION: Yes incision (Clean dry and intact) AUSCULTATION: Yes normoactive bowel sounds PALPATION: Yes Soft to palpation and Yes Tenderness to palpation present (GI) (Minimal postoperative) Extremity: GENERAL: No calf tenderness and No edema Urinary Catheter Management^: Freitas: Cath Placed During This Visit: yes Reason for Continuing Indwelling Catheter: Perioperative Use in Selected Surgeries Urinary Catheter Date of Insertion: 01/23/20 Urinary Catheter Time of Insertion: 07:40 Discharge Data Vitals: Last Vital Signs Temp 98.2 F 01/26/20 05:43 Pulse 84 01/26/20 05:43 Resp 18 01/26/20 05:43 BP 125/86 01/26/20 05:43 Pulse Ox 97 01/25/20 16:03 Discharge Plan Discharge Patient Disposition: Home Condition: Stable Prescriptions: New hydrocodone-acetaminophen 5-325 mg Tablet 1 - 2 tab PO Q4H PRN (Reason: Moderate To Severe Pain) Qty: 15 RF: 0 docusate sodium 100 mg Capsule 100 mg PO BID Qty: 60 RF: 0 ibuprofen 800 mg Tablet 800 mg PO TID PRN (Reason: Abdominal Discomfort) Qty: 30 RF: 0 Continued 1 tab PO DAILY RF: 0 Discontinued methyldopa 250 mg PO BID RF: 0 Discharge Diet: Usual diet Discharge Activity: Limit activity as instructed Patient Instructions: Your Baby (GEN), Expression, Collection and Storage of Breastmilk (GEN), How to Hold and Breastfeed Your Baby (GEN), and Nipple Soreness (GEN), Breast Fullness Versus Breast Engorgement (GEN), and Plugged Ducts (GEN), and Your Diet (GEN), Breast Care for the Breast Feeding Mother (GEN), OB - Cristobal/Demond, OB Discharge Report, OB Food/Drug Interaction Guide Discharge Attestations DENTAL CHAIRSIDE ASSISTANT Time Spent in Discharge Care*: less than 30 min Coding Level of Care Code Acute Cellophane Wrapping Examiner for Chg Fwd Diagnoses Status post repeat low transverse section Z98.891 Mild pre-eclampsia in third trimester O14.03 Chronic hypertension affecting O10.919 Previous section Z98.891
[2020-01-26 13:35] VITALS: BP 120/80; PULSE 88; RESP 18; TEMP 37.2; O2SAT 99
[2020-01-26 14:06] VITALS: BP 120/80; PULSE 88; RESP 18; TEMP 37.2; O2SAT 99
--- NOTE | 2020-01-28 11:48 | PC.NURSE ---
PT CALLED AND SAID THAT [facility] WERE NOT AT [facility] IN [facility] SO THIS RN TEACHER CALLED THEM INTO [facility] AND THEY HAD THE WRITTEN SCRIPT FOR THE HYDROS.
== END 2020-01-26 13:55 | disposition home or self-care (01) | DRG 788 ==
PROVIDERS: Admitting Provider Family Medicine; Visit Provider Family Medicine
DX: O14.04 Mild to moderate pre-eclampsia, complicating childbirth (principal); Z3A.37 37 weeks gestation of pregnancy; Z37.0 Single live birth; O34.211 Maternal care for low transverse scar from previous cesarean delivery; N85.8 Other specified noninflammatory disorders of uterus
CPT/HCPCS: 12345; 36415; 51702; 59025; 59409; 85025; 85027; 87491; 87591; 90707; 96372; 96375; 98960; J0690; J1885; J2274; J2370; J2405; J2765; J2795; J3490; J7030

== ENCOUNTER → 2020-02-26 14:19 | Outpatient (BNVA) | payer MEDICAID, SELFPAY | PROVIDERS: Family Provider Registered Nurse; Visit Provider Registered Nurse | DX: Z30.9 Encounter for contraceptive management, unspecified (principal) | CPT/HCPCS: 81025 ==

== ENCOUNTER → 2021-06-24 08:42 | Outpatient (BNVA) | payer MEDICAID, SELFPAY | PROVIDERS: Family Provider Registered Nurse; PCP Registered Nurse; Visit Provider Registered Nurse | DX: N39.0 Urinary tract infection, site not specified (principal) | CPT/HCPCS: 81000; 87077; 87086; 87184 ==

== ENCOUNTER → 2021-10-07 14:54 | Outpatient (BNVA) | payer MEDICAID, SELFPAY | PROVIDERS: Family Provider Registered Nurse; PCP Registered Nurse; Visit Provider Registered Nurse | DX: O99.345 Other mental disorders complicating the puerperium (principal); F53.0 Postpartum depression; N92.6 Irregular menstruation, unspecified; J01.40 Acute pansinusitis, unspecified; F41.9 Anxiety disorder, unspecified; F32.9 Major depressive disorder, single episode, unspecified | CPT/HCPCS: 81025 ==

== ENCOUNTER → 2021-10-20 11:31 | Outpatient (BNVA) | payer MEDICAID, SELFPAY | PROVIDERS: Family Provider Registered Nurse; PCP Registered Nurse; Visit Provider Registered Nurse | DX: R30.0 Dysuria (principal); N89.8 Other specified noninflammatory disorders of vagina; B37.3 Candidiasis of vulva and vagina | CPT/HCPCS: 81000; 87070; 87205 ==

== ENCOUNTER → 2022-10-22 17:22 | Outpatient (BNVA) | payer MEDICAID, SELFPAY | PROVIDERS: Family Provider Registered Nurse; PCP Registered Nurse; Visit Provider Nurse Practitioner | DX: N92.6 Irregular menstruation, unspecified (principal) | CPT/HCPCS: 81025 ==

== ENCOUNTER 2022-11-10 22:41 | Emergency (ER) | payer MEDICAID, SELFPAY ==
[2022-11-10 22:55] VITALS: PULSE 99; RESP 18; TEMP 37.1; O2SAT 93
--- NOTE | 2022-11-10 22:58 | USR_ITS ---
PROCEDURE INFORMATION: Exam: US First Trimester, Transabdominal and US , Transvaginal Exam date and time: 11/10/2022 11:23 PM Age: 26 years old Clinical indication: complicated by abdominal or pelvic pain; Generalized abdominal pain; First trimester (<14 weeks 0 days); Gestational age or lmp: 6w 5d; ; Prior surgery; Surgery date: 6+ months; Surgery type: Csection x 3; Patient HX: G4-p3-a0-l3 presenting with generalized pelvic cramping x 2 hours. No vaginal bleeding. Patient has a history of pre-eclampsia. ; Additional info: Abd pain LABS AND CLINICAL REPORTS: Last menstrual period start date: 09/16/2022 Gestational age (Established): 7 w 6 d Estimated due date (Established): 06/23/2023 TECHNIQUE: Imaging protocol: Real-time transabdominal obstetrical ultrasound of the maternal pelvis and a first trimester , less than 14 weeks 0 days, with image documentation. Transvaginal imaging was used for better evaluation of the fetus, adnexa, and/or cervix. COMPARISON: No relevant prior studies available. FINDINGS: Gestation: Intrauterine gestation is visualized. pole is visualized. Yolk sac is visualized. Embryonic/ heart rate: 129 bpm. heart beat 129 bpm. 7.3 mm pole with estimated gestational age 6 weeks 5 days. Vigorous movement. Extra-embryonic membranes/Placenta: Unremarkable. No subchorionic bleed. Amniotic fluid: Amniotic fluid and extra-amniotic fluid is normal for gestational age. BIOMETRY: Gestational age (AUA): 6 w 5 d. Single viable intrauterine with EGA 6 weeks 5 days. Estimated due date (AUA): 06/23/2023. YVONNE by ultrasound July 01, 2023. [place]-Rump length (CRL): 7.3 mm. EGA (CRL) is 6 w 5 d MATERNAL: Uterus: Uterus measures 11.3 cm x 6.5 cm x 5.6 cm. 11.3 x 6.5 x 5.6 cm uterus with estimated volume 217 cc. 4.1 x 2.4 x 3.1 cm right ovary with estimated volume 16 cc. 3.4 x 1.2 x 2.7 cm left ovary with estimated volume 8 cc. Cervix: Unremarkable. Right ovary/adnexa: Right ovary measures 4.1 cm x 2.4 cm x 3.1 cm. Right ovarian volume is 15.9 mL. Left ovary/adnexa: Left ovary measures 3.4 cm x 1.7 cm x 2.7 cm. Left ovarian volume is 7.8 mL. Intraperitoneal space: No intraperitoneal free fluid. US/US OB <= 14 weeks fetus [id number] IMPRESSION: 1. Single viable intrauterine with EGA 6 weeks 5 days. 2. YVONNE by ultrasound July 01, 2023.
--- NOTE | 2022-11-10 23:04 | W.ED.ABDPA2 ---
HPI - Abdominal Pain General: Chief Complaint: Abdominal Pain Stated Complaint: 7 Weeks Preg Sharp Pains Time Seen by Provider: 11/10/22 22:44 Source: patient Mode of arrival: ambulatory Limitations: no limitations History of Present Illness: 26-year-old female states she is roughly 7 weeks states she been having some suprapubic sharp pains over the last day. States pain is currently a 4 out of 10 she denies any vaginal bleeding denies any dysuria denies any right lower quadrant pain she had no vomiting or diarrhea denies any worsening proving factors. Associated Symptoms: Denies chills, diarrhea, dysuria, fever(s), nausea and vomiting Review of Systems Const: Denies: fever(s) or chills ENMT: Denies: throat pain or dental pain Card: Denies: chest pain Resp: Denies: dyspnea GI: Reports: abdominal pain; Denies: nausea, vomiting or diarrhea : Denies: dysuria Musc: Denies: neck pain or back pain Skin/Breast: Denies: rash Neuro: Denies: headache(s) PFSH ED PFSH: Medical History Anxiety and depression Chronic hypertension affecting Surgical History History of Previous section Social History Smoking and tobacco status: never smoked Second hand smoke exposure: No Alcohol intake: never Substance/Drug Use: never Female Reproductive History: Para: 2 Spontaneous abortions: Yes (1) Physical Exam Const: COMMON NORMALS: no acute distress, patient oriented x3 and healthy appearing HENMT: COMMON NORMALS: normocephalic and atraumatic HEAD & SCALP: normocephalic and atraumatic Neck/C-Spine: COMMON NORMALS: full ROM and supple Chest: COMMONS NORMALS: normal inspection of the chest and normal palpation of entire chest wall Resp: COMMON NORMALS: normal respiratory effort, No retractions, No use of accessory muscles and clear to auscultation bilaterally AUSCULTATION: clear to auscultation bilaterally Cardio: COMMON NORMALS: regular rate, regular rhythm and No murmurs present (Cardio) RATE: regular rate RHYTHM: regular rhythm GI: COMMON NORMALS: Normal to inspection, nondistended, normoactive bowel sounds present, Soft to palpation, non-tender and no masses PALPATION: Yes Soft to palpation Extremity: COMMON NORMALS: normal to inspection and full ROM Neuro: COMMON NORMALS: patient oriented x3, moves all extremities and no focal motor deficits Psych: COMMON NORMALS: mental status grossly normal, Normal thought process present and cooperative THOUGHT PROCESS: Normal thought process present Skin: COMMON NORMALS: no rashes or lesions noted and no wounds GENERAL SKIN EXAM: no rashes or lesions noted Course Vital Signs: Vital signs: Vital Signs Temperature 98.7 F 11/10/22 22:55 Pulse Rate 99 11/10/22 22:55 Respiratory Rate 18 11/10/22 22:55 Pulse Oximetry 93 11/10/22 22:55 Oxygen Delivery Me thod Room Air 11/10/22 22:55 MDM - Abdominal Pain Medical Decision Making Patient presents with abdominal pain in ultrasound showed 6-week fetus her pains improved her exam is benign she has no signs of appendicitis blood works normal no UTI she stable for discharge she is to follow-up with her OB and return if worsening. Medical Records I reviewed the patient's medical records. Lab Data I reviewed the patient's lab results. 11/10/22 23:10 11/10/22 23:10 Labs/Radiology: Radiology Impressions Ultrasound 11/10/22 22:58 IMPRESSION: 1. Single viable intrauterine with EGA 6 weeks 5 days. 2. YVONNE by ultrasound July 01, 2023. Laboratory Results WBC 10.9 10^3/uL (4.0-10.0) H 11/10/22 23:10 RBC 4.10 10^6/uL (4.1-5.3) 11/10/22 23:10 Hgb 11.5 g/dL (11.5-15.3) 11/10/22 23:10 Hct 34.9 % (37.0-47.0) L 11/10/22 23:10 MCV 85.1 fl (81-99) 11/10/22 23:10 MCH 28.0 pg (28.0-34.0) 11/10/22 23:10 MCHC 33.0 g/dL (30.0-36.0) 11/10/22 23:10 RDW 14.8 % (12.1-15.1) 11/10/22 23:10 Plt Count 280 10^3/cmm (130-400) 11/10/22 23:10 MPV 9.2 fL (7.4-10.4) 11/10/22 23:10 Neut % (Auto) 67.9 % 11/10/22 23:10 Lymph % (Auto) 25.1 % 11/10/22 23:10 [place] % (Auto) 5.5 % 11/10/22 23:10 Eos % (Auto) 0.8 % 11/10/22 23:10 Baso % (Auto) 0.2 % 11/10/22 23:10 Neut # (Auto) 7.38 10^3/uL (1.8-7.7) 11/10/22 23:10 Lymph # (Auto) 2.7 10^3/uL (0.8-4.8) 11/10/22 23:10 [place] # (Auto) 0.6 10^3/uL (0.2-0.9) 11/10/22 23:10 Eos # (Auto) 0.1 10^3/uL (0.0-0.8) 11/10/22 23:10 Baso # (Auto) 0.0 10^3/uL (0.0-0.1) 11/10/22 23:10 Nucleated RBC % (auto) 0 % 11/10/22 23:10 Nucleated RBCs # 0.0 /100WBC 11/10/22 23:10 Sodium 136 mmol/L (136-145) 11/10/22 23:10 Potassium 3.7 mmol/L (3.5-5.1) 11/10/22 23:10 Chloride 102 mmol/L (98-107) 11/10/22 23:10 Carbon Dioxide 22 mmol/L (22-29) 11/10/22 23:10 Anion Gap 15.7 (5-19) 11/10/22 23:10 BUN 9 mg/dL (6-20) 11/10/22 23:10 Creatinine 0.6 mg/dL (0.5-0.9) 11/10/22 23:10 GFR Calculation 121.8 mL/min (90-130) 11/10/22 23:10 Glucose 92 mg/dL (65-115) 11/10/22 23:10 Calculated Osmolality 280 mOsm/kg (285-295) L 11/10/22 23:10 Calcium 9.2 mg/dL (8.5-10.5) 11/10/22 23:10 Total Bilirubin 0.4 mg/dL (0.15-1.2) 11/10/22 23:10 AST 10 U/L (0-32) 11/10/22 23:10 ALT 12 U/L (0-33) 11/10/22 23:10 Alkaline Phosphatase 84 U/L (35-105) 11/10/22 23:10 Total Protein 6.9 g/dL (6.6-8.7) 11/10/22 23:10 Albumin 3.9 g/dL (3.5-5.2) 11/10/22 23:10 Globulin 3.0 g/dL (1.3-4.6) 11/10/22 23:10 Lipase 13 U/L (13-60) 11/10/22 23:10 Ser , Semi-Qnt > 44084.00 mIU/mL 11/10/22 23:10 Urine Color Yellow (Yellow) 11/11/22 00:00 Urine Appearance Clear (CLEAR) 11/11/22 00:00 Urine pH 5 (5-7) 11/11/22 00:00 Ur Specific [place] 1.020 (1.005-1.030) 11/11/22 00:00 Urine Protein Trace (Negative) 11/11/22 00:00 Urine Glucose (UA) Norm (Normal) 11/11/22 00:00 Urine Ketones Negative (Negative) 11/11/22 00:00 Urine Blood Neg (Negative) 11/11/22 00:00 Urine Nitrate Negative (Negative) 11/11/22 00:00 Urine Bilirubin Neg (Negative) 11/11/22 00:00 Urine Urobilinogen Norm mg/dL (Negative) 11/11/22 00:00 Ur Leukocyte Esterase Negative (Negative) 11/11/22 00:00 Urine RBC 0-4 /hpf (0-2) H 11/11/22 00:00 Urine WBC None /hpf (0-5) 11/11/22 00:00 Ur Squamous Epith Cells 0-4 /hpf (0-5) H 11/11/22 00:00 Amorphous Sediment Not Reportable 11/11/22 00:00 Urine Bacteria Trace /hpf (NONE) 11/11/22 00:00 Blood Type A Positive 11/10/22 23:10 Rho(D) Type Positive 11/10/22 23:10 Antibody Screen Negative 11/10/22 23:10 Discharge Plan Discharge Patient Disposition: Home Clinical Impression: Abdominal pain during Condition: Stable Discharge Orders: Discharge ED (Routine); Ordered 11/11/22 Ordered By: Lorri Burks Referrals: Jimenez Stephens FNP [Primary Care Provider] - Discharge Diet: Advance as tolerated Discharge Activity: Resume usual activity Patient Instructions: Abdominal Pain in (ED) Coding Level of Care Code ED [employer] Ax Consultant for Isreal Tripp
[2022-11-10 23:20] LABS: Basophils % 0.2 %; Eosinophils # 0.1 10^3/uL (0.0-0.8); Eosinophils % 0.8 %; Hematocrit 34.9 % (37.0-47.0); Hemoglobin 11.5 g/dL (11.5-15.3); Lymphocytes # 2.7 10^3/uL (0.8-4.8); Lymphocytes % 25.1 %; Mean Corpuscular Volume 85.1 fl (81-99); Mean Platelet Volume 9.2 fL (7.4-10.4); Monocytes # 0.6 10^3/uL (0.2-0.9); Monocytes % 5.5 %; Neutrophils # 7.38 10^3/uL (1.8-7.7); Neutrophils % 67.9 %; Nucleated Red Blood Cells % 0 %; Platelet Count 280 10^3/cmm (130-400); Red Cell Distribution Width 14.8 % (12.1-15.1); White Blood Count 10.9 10^3/uL (4.0-10.0)
[2022-11-10 23:53] LABS: Alanine Aminotransferase 12 U/L (0-33); Albumin Level 3.9 g/dL (3.5-5.2); Alkaline Phosphatase 84 U/L (35-105); Anion Gap 15.7 (5-19); Aspartate Amino Transferase 10 U/L (0-32); Blood Urea Nitrogen 9 mg/dL (6-20); Calcium 9.2 mg/dL (8.5-10.5); Carbon Dioxide 22 mmol/L (22-29); Chloride 102 mmol/L (98-107); Glomerular Filtration Rate 121.8 mL/min (90-130); Glucose 92 mg/dL (65-115); Lipase 13 U/L (13-60); Osmolality Calculated 280 mOsm/kg (285-295); Potassium 3.7 mmol/L (3.5-5.1); Sodium 136 mmol/L (136-145); Total Bilirubin 0.4 mg/dL (0.15-1.2); Total Protein 6.9 g/dL (6.6-8.7)
[2022-11-11 00:30] LABS: Add Urine Microscopic? YES; Bacteria Urine TRACE /hpf; Bilirubin Urine Neg (Negative); Blood Urine Neg (Negative); Glucose Urine UA Norm (Normal); Ketones Urine Negative (Negative); Leukocyte Esterase Urine Negative (Negative); Nitrate Urine Negative (Negative); Protein Urine Trace (Negative); RBC Urine 0-4 /hpf (0-2); Squamous Epithelial Cell Urine 0-4 /hpf (0-5); Urine Appearance Clear (CLEAR); Urine Color Yellow (Yellow); Urobilinogen Urine Norm (Negative); pH Urine 5 (5-7)
[2022-11-11 00:31] LABS: Add Urine Culture? No
[2022-11-11 00:31] LABS: HCG Quantitative > 10000.00 mIU/mL
== END 2022-11-11 00:54 | disposition home or self-care (01) ==
PROVIDERS: Emergency Provider Emergency Medicine; PCP Registered Nurse
DX: O26.891 Other specified pregnancy related conditions, first trimester (principal); R10.9 Unspecified abdominal pain; Z3A.01 Less than 8 weeks gestation of pregnancy
CPT/HCPCS: 36415; 76801; 80053; 81001; 83690; 84702; 85025; 86850; 86900; 99284

== ENCOUNTER 2023-01-15 20:27 | Emergency (ER) | payer MEDICAID, SELFPAY ==
[2023-01-15 20:28] VITALS: BP 150/91; PULSE 92; RESP 18; TEMP 37.2; O2SAT 99; BMI 48.9
--- NOTE | 2023-01-15 21:36 | USR_ITS ---
PROCEDURE INFORMATION: Exam: US , Limited Exam date and time: 01/15/2023 9:55 PM Age: 27 years old Clinical indication: Lmp or gestational age (in weeks): 16w1d; Other: Blkeed; ; Additional info: 16 weeks; High risk TECHNIQUE: Imaging protocol: Real-time ultrasound of the maternal uterus with image documentation. Exam focused on the clinical indication. COMPARISON: US OB <= 14 weeks fetus [id number] 11/10/2022 11:23 PM FINDINGS: Gestation: Single live intrauterine gestation. heart rate: heart rate 147 bpm. Placenta: Posterior placenta. Amniotic fluid: Normal amniotic fluid. Other findings: Estimated gestational age 16 weeks 1 day based on femur length (2.08 cm, 47th percentile) US/US OB limited [id number] IMPRESSION: Unremarkable limited exam.
[2023-01-15 21:37] VITALS: BP 160/64
--- NOTE | 2023-01-15 21:37 | ED_ITS ---
HPI - General: Chief complaint: Vaginal Bleeding Stated complaint: bleeding/16 weeks Time Seen by Provider: 01/15/23 21:26 History of Present Illness: Patient is a 27-year-old female that presents to the emergency department with complaints of vaginal itching, burning and diagnosis of a yeast infection. Patient had called her LACQUER PIN PRESS OPERATOR and relayed a report of pink-tinged discharge. They asked for her to be evaluated due to high risk state. Patient is a A0 Denies abdominal cramping High risk due to preeclampsia Patient is already taking metoprolol Associated symptoms: Deny abdominal pain, dysuria, headache(s), malaise, nausea or vomiting Review of Systems General: Reports: 10 or more systems reviewed and unremarkable except in HPI and below Const: Denies: fever(s), chills, change in appetite, change in weight, fatigue or malaise Eyes: Denies: change in vision, eye discomfort, eye discharge or eye redness ENMT: Denies: throat pain, enlarged tonsils, odynophagia, hoarseness, ear or mastoid pain, ear discharge, change in hearing, tinnitus, nasal discharge, nasal congestion, post nasal drip or sinus pain Card: Denies: chest pain, palpitations, irregular heart rhythm, edema, dyspnea on exertion, orthopnea or leg pain with exertion Resp: Denies: dyspnea, productive cough, non-productive cough, wheezing, stridor or chest congestion GI: Denies: abdominal pain, nausea, vomiting, dysphagia, diarrhea, constipation, bloating, GI cramping or hematochezia : Reports: genital pruritis; Denies: flank pain, difficulty voiding, dysuria, urinary frequency, urinary urgency, urinary hesitancy, oliguria, hematuria or genital lesions Musc: Denies: neck pain, back pain, extremity pain, joint pain, joint swelling, joint redness, joint warmth or muscle weakness Skin/Breast: Denies: rash, pruritus, erythema, photosensitivity or new lesions Neuro: Denies: headache(s), numbness in extremities, weakness in extremities, sensory changes, lack of coordination, difficulty walking, frequent falls, dizziness, confusion, Slurred speech present, difficulty communicating thoughts, seizure-like activity or involuntary movements Endo: Denies: polyuria, polydipsia or tired all the time Spike/Lymph: Denies: easy bruising or easy bleeding PFSH ED PFSH: Medical History Anxiety and depression Chronic hypertension affecting Surgical History History of Previous section Social History Smoking and tobacco status: never smoked Second hand smoke exposure: No Alcohol intake: never Substance/Drug Use: never Female Reproductive History: Para: 2 Spontaneous abortions: Yes (1) Physical Exam Const: COMMON NORMALS: no acute distress, patient oriented x3 and alert GENERAL APPEARANCE: cooperative ORIENTATION/CONSCIOUSNESS: Yes awake, Yes oriented to person, Yes oriented to place and Yes oriented to time HENMT: COMMON NORMALS: normocephalic and atraumatic HEAD & SCALP: normocephalic and atraumatic FACE & SINUS: normal facial exam MOUTH: Normal oral and palatal mucosa present THROAT: posterior oropharynx normal Eye: COMMON NORMALS: Equal, round and reactive pupils present, EOMs intact bilaterally, conjunctivae normal and no scleral icterus GENERAL EYE: appearance normal, both eyes and all related structures ALIGNMENT: Yes alignment normal PERIORBITAL: periorbital findings normal CONJUNCTIVA: Yes conjunctivae normal PUPIL: Yes Equal, round and reactive pupils present Neck/C-Spine: COMMON NORMALS: full ROM GENERAL: Yes normal visual inspection Lymph: LYMPHATIC: no lymphadenopathy noted Chest: COMMONS NORMALS: normal inspection of the chest Breast/axilla inspection: Yes no chest deformity, asymmetry, normal contours, no nodules, masses, tenderness Resp: COMMON NORMALS: normal respiratory effort, No retractions, No use of accessory muscles and clear to auscultation bilaterally EFFORT & INSPECTION: Yes able to speak in complete sentences and Yes symmetric chest movement AUSCULTATION: clear to auscultation bilaterally Cardio: COMMON NORMALS: regular rate, regular rhythm and Peripheral pulses 2+ throughout RATE: regular rate RHYTHM: regular rhythm PERIPHERAL PULSES: Peripheral pulses 2+ throughout GI: COMMON NORMALS: Normal to inspection, nondistended, normoactive bowel so unds present, Soft to palpation, non-tender and No hepatosplenomegaly present INSPECTION: Yes normal to inspection AUSCULTATION: Yes normoactive bowel sounds PALPATION: Yes Soft to palpation and Yes No hepatosplenomegaly present RECTAL EXAM: deferred : COMMON NORMALS: Yes no CVA tenderness BLADDER/KIDNEY EXAM: Yes bladder normal to palpation and Yes no CVA tenderness EXTERNAL FEMALE EXAM: Yes normal appearance of the urethra, Yes erythema, Yes externally tender and Yes external swelling BIMANUAL EXAM - VAGINA & UTERUS: Yes bladder normal to palpation Back/Pelvis: COMMON NORMALS: no CVA tenderness Extremity: COMMON NORMALS: normal to inspection GENERAL: Yes normal exam except as noted Neuro: COMMON NORMALS: patient oriented x3 SENSORIUM/ORIENTATION: Yes alert, Yes oriented to person, Yes oriented to place and Yes oriented to time CRANIAL NERVES: Yes CN normal except as noted Psych: COMMON NORMALS: mental status grossly normal, Normal thought process present, cooperative, activity/motor behavior normal, denies homicidal ideation and denies suicidal ideation THOUGHT PROCESS: Normal thought process present Skin: COMMON NORMALS: no rashes or lesions noted, no wounds and turgor normal GENERAL SKIN EXAM: no rashes or lesions noted and turgor normal Course Vital Signs: Vital signs: Vital Signs Temperature 98.9 F 01/15/23 20:28 Pulse Rate 92 01/15/23 20:28 Respiratory Rate 18 01/15/23 20:28 Blood Pressure 160/64 01/15/23 21:37 Pulse Oximetry 99 01/15/23 20:28 Oxygen Delivery Me thod Room Air 01/15/23 20:28 MDM - OB/Uterine Contractions Medical Decision Making Patient was evaluated in the emergency department due to concerns of . She underwent an ultrasound?limited exam which revealed a heart rate of 140 beats a minute and revealed an estimated gestation of 16 weeks 1 day. Patient is already on Monistat for her yeast infection. We are going to have the patient follow-up with primary care provider/OB. She is to call this week?Tuesday. Patient does have follow-up already scheduled Patient may return to the emergency department for new concerning or worsening symptoms Lab Data Radiology Impressions Obstetrics Ultrasound 01/15/23 21:36 IMPRESSION: Unremarkable limited exam. Discharge Plan Discharge Patient Disposition: Home Clinical Impression: Previous section, Vaginal yeast infection Condition: Stable Discharge Orders: Discharge ED (Routine); Ordered 01/15/23 Ordered By: Vee Wood Referrals: Joycelyn Lagos MD [Primary Care Provider] - Discharge Diet: Advance as tolerated Discharge Activity: Resume usual activity Patient Instructions: Yeast Infection (ED) Activity Restrictions/Additional Instructions: Lease follow-up with primary care doctor/OB as planned Coding Level of Care Code ED Bolting Machine Operator for Isreal Tripp
[2023-01-15 22:00] VITALS: BP 160/64; PULSE 90; RESP 16; O2SAT 95
[2023-01-15 23:00] VITALS: BP 154/77; PULSE 81; RESP 16; O2SAT 97
[2023-01-16 00:43] VITALS: BP 160/69; PULSE 80; RESP 16; O2SAT 97
== END 2023-01-16 01:04 | disposition home or self-care (01) ==
PROVIDERS: Emergency Provider Nurse Practitioner; PCP Family Medicine
DX: O98.812 Other maternal infectious and parasitic diseases complicating pregnancy, second trimester (principal); B37.31 Acute candidiasis of vulva and vagina; Z3A.16 16 weeks gestation of pregnancy
CPT/HCPCS: 76815; 99283

== ENCOUNTER 2023-05-15 14:01 | Outpatient (CLI) | payer MEDICAID, SELFPAY ==
[2023-05-15 13:55] VITALS: RESP 17; BMI 48.4
[2023-05-15 14:17] VITALS: BP 131/75; PULSE 96
[2023-05-15 14:32] VITALS: BP 120/65; PULSE 87
[2023-05-15 14:47] VITALS: BP 118/67; PULSE 90
[2023-05-15 15:02] VITALS: BP 128/69; PULSE 84
[2023-05-15 15:14] VITALS: BP 128/69; PULSE 84
== END 2023-05-15 15:14 | disposition home or self-care (01) ==
LOC: OPOB 14:01 → OBGYN 14:02
PROVIDERS: PCP Family Medicine; Visit Provider Family Medicine
DX: O36.8190 Decreased fetal movements, unspecified trimester, not applicable or unspecified (principal); Z3A.00 Weeks of gestation of pregnancy not specified
CPT/HCPCS: 59025; 99211

== ENCOUNTER 2023-05-23 08:30 | Outpatient (CLI) | payer MEDICAID, SELFPAY ==
[2023-05-23 08:39] VITALS: RESP 16; BMI 48.7
[2023-05-23 08:52] VITALS: BP 116/55; PULSE 74
[2023-05-23 09:13] VITALS: BP 116/55; PULSE 74
== END 2023-05-23 09:14 ==
LOC: OPOB 08:35 → OBGYN 08:36
PROVIDERS: PCP Family Medicine; Visit Provider Family Medicine
DX: O16.9 Unspecified maternal hypertension, unspecified trimester (principal); Z3A.00 Weeks of gestation of pregnancy not specified
CPT/HCPCS: 59025

== ENCOUNTER 2023-05-25 00:53 | Outpatient (CLI) | payer MEDICAID, SELFPAY ==
[2023-05-25 01:10] VITALS: BP 122/59; PULSE 93
[2023-05-25 02:14] VITALS: BMI 48.7
[2023-05-25 02:17] LABS: Nitrazine Paper, PH Negative
[2023-05-25 02:29] VITALS: BP 137/69; PULSE 88
[2023-05-25] MEDS: terbutaline 1 mg/mL INJ 0.25 MG SUBCUT ×2 (02:44→03:33)
[2023-05-25] MEDS: lactated ringers 1,000 ML 999 ML IV (03:32)
--- NOTE | 2023-05-25 05:55 | PM.OBTRLD ---
OB L&D Triage Visit Information: Date of evaluation: 05/25/23 Comments/Additional reason(s) for visit: This is a 27-year-old G. P at 22w6d w YVONNE 09/22/23 who presented via EMS complaining of contractions and possible rupture of membranes. She states that she was not sure she might of peed on herself. She complained of nicole every 1 to 2 minutes with an intensity of 5-6 out of 10. Her vaginal vault was dry and nitrazine negative. She was given a dose of terbutaline which decreased the intensity of contractions to approximately 2 out of 10. She was still nicole every 1 to 2 minutes. She was given a second dose of terbutaline along with a 1 L fluid bolus after which her contractions resolved. We had a reactive NST and she was discharged home. Evaluation: monitor accelerations: Present 15x15 Laboratory results: Laboratory Tests 05/25/23 05/25/23 02:08 05:10 Amorphous Sediment Not Reportable Fluid pH (paper) Negative Vital signs: Vital Signs - 24 hr 05/25/23 01:10 05/25/23 02:29 Pulse Rate 93 88 Blood Pressure 122/59 137/69 Final Diagnosis Final Diagnosis (1) uterine contractions in third trimester, antepartum: Status: Acute Code(s): O47.03 - False labor before 37 completed weeks of gestation, third trimester (2) Chronic hypertension affecting : Plan: controlled on metoprolol Status: Acute Code(s): O10.919 - Unspecified pre-existing hypertension complicating , unspecified trimester (3) Previous section: Plan: pt was kept NPO until d/c Status: Acute Code(s): Z98.891 - History of uterine scar from previous surgery Coding Level of Care Code Acute Code for Chg Fwd Diagnoses uterine contractions in third trimester, antepartum O47.03 Chronic hypertension affecting O10.919 Previous section Z98.891
[2023-05-25 06:18] LABS: Bacteria Urine 2+ /hpf; Bilirubin Urine Neg (Negative); Blood Urine Neg (Negative); Glucose Urine UA Norm (Normal); Ketones Urine Negative (Negative); Leukocyte Esterase Urine Negative (Negative); Mucus Urine 2+ /hpf; Nitrate Urine Negative (Negative); Protein Urine 3+ (Negative); RBC Urine 0-4 /hpf (0-2); Transitional Epi Cells Urine 0-4 /hpf; Urine Appearance Clear (CLEAR); Urine Color Yellow (Yellow); Urobilinogen Urine 1 mg/dL (Negative); pH Urine 6 (5-7)
[2023-05-25 06:19] LABS: Add Urine Culture? No
== END 2023-05-25 06:20 | disposition home or self-care (01) ==
LOC: OPOB 00:55 → OBGYN 00:56
PROVIDERS: PCP Family Medicine; Visit Provider Family Medicine
DX: O26.899 Other specified pregnancy related conditions, unspecified trimester (principal); Z3A.00 Weeks of gestation of pregnancy not specified; R10.9 Unspecified abdominal pain; N89.8 Other specified noninflammatory disorders of vagina
CPT/HCPCS: 59025; 81001; 83986; 96372; 99211; J3105; J7120

== ENCOUNTER 2023-05-30 09:28 | Outpatient (CLI) | payer MEDICAID, SELFPAY ==
[2023-05-30 09:30] VITALS: BMI 48.9
[2023-05-30 09:34] VITALS: BP 135/82; PULSE 83
== END 2023-05-30 10:05 | disposition home or self-care (01) ==
LOC: OPOB 09:29 → OBGYN 09:30
PROVIDERS: PCP Family Medicine; Visit Provider Family Medicine
DX: O24.419 Gestational diabetes mellitus in pregnancy, unspecified control (principal); Z3A.00 Weeks of gestation of pregnancy not specified
CPT/HCPCS: 59025

== ENCOUNTER → 2023-06-02 08:44 | Day surgery (SDC) | payer MEDICAID, SELFPAY ==
--- NOTE | 2023-06-02 10:01 | ANES.PREANE2 ---
Pre-Anesthetic Assessment Height/Weight: Height 1.63 m repeat c section Familial anesthetic complications: Previous epidural failed for emergent - converted to general, remaining spinals worked fined Social No alcohol and No tobacco Exam alert, oriented x 3, clear to auscultation bilaterally and regular rate & rhythm Airway Mallampati: Class I Dentition: full Anesthetic Plan ASA status: 3 Other: preeclampsia Risk of > 500 ml blood loss (7ml/kg in children): Yes, adequate IV access and fluids planned Medications/Allergies Home Medications Medication Instructions Recorded Confirmed Last Taken Type 05/30/23 05/30/23 08:30 History Zofran PO 3XD 05/30/23 05/30/23 08:30 History metoprolol tartrate PO 2XD 05/30/23 05/30/23 08:30 History omeprazole PO 1XD 05/30/23 05/30/23 08:30 History Allergies Allergy/AdvReac Type Severity Reaction Status Date / Time bee venom protein (honey bee) Allergy ALGY-Anaphy Verified 11/10/22 22:59 laxis cefaclor [From Ceclor] Allergy ADR-Vomitin Verified 11/10/22 22:59 g egg Allergy ADR-Vomitin Verified 11/10/22 22:59 g Penicillins Allergy Unknown Verified 05/30/23 09:50 [facility] Anesthesia Medical History Anxiety and depression Chronic hypertension affecting Surgical History History of Previous section Social History Smoking and tobacco/nicotine status: never used tobacco/nicotine Second hand smoke exposure: No Alcohol intake: never Substance/Drug Use: never Female Reproductive History Para: 2 Spontaneous abortions: Yes (1) Data Anesthesia Cardiac Studies: No Data to Display
== END ==
PROVIDERS: PCP Family Medicine; Visit Provider Family Medicine
DX: Z01.818 Encounter for other preprocedural examination (principal)

== ENCOUNTER 2023-06-02 11:23 | Outpatient (CLI) | payer MEDICAID, SELFPAY ==
[2023-06-02 11:23] VITALS: BMI 48.5
[2023-06-02 11:30] VITALS: RESP 17
--- NOTE | 2023-06-02 11:32 | US_ITS ---
WS: [id number] NUMBER: 1 PRESENTATION: Vertex CARDIAC ACTIVITY: 147 MOVEMENT: Satisfactory AMNIOTIC FLUID VOLUME: RADHA is 19.63 cm PLACENTA: Posterior fundal no abruption or previa. Placental grade is 2. BIPARIETAL DIAMETER MEASUREMENTS: 9.1 cm, equals 36w5d. FEMORAL LENGTH MEASUREMENTS: 7.2 cm, equals 36w5d. ABDOMINAL CIRCUMFERENCE: 32.8 cm, equals 36w5d. ESTIMATED WEIGHT: 3020 g; 68th percentile ESTIMATED GESTATIONAL AGE: 36w5d IMPRESSION: Viable intrauterine with single fetus estimated at 36w5d 06/25/2023. Exam: OB limited [id number] Date/Time of Exam: 06/02/2023 11:35 AM Reason For Exam: chronic hypertension
[2023-06-02 11:35] VITALS: BP 156/74; PULSE 85
[2023-06-02 11:40] VITALS: RESP 18
[2023-06-02 12:02] VITALS: BP 135/69; PULSE 81
[2023-06-02 12:16] VITALS: BP 140/72; PULSE 76
[2023-06-02 12:25] VITALS: RESP 16
== END 2023-06-02 12:25 ==
LOC: OPOB 11:26 → OBGYN 11:27
PROVIDERS: PCP Family Medicine; Visit Provider Family Medicine
DX: O16.3 Unspecified maternal hypertension, third trimester (principal); Z3A.36 36 weeks gestation of pregnancy
CPT/HCPCS: 59025; 76815; 99211

== ENCOUNTER 2023-06-06 09:13 | Outpatient (CLI) | payer MEDICAID, SELFPAY ==
[2023-06-06 09:13] VITALS: BMI 48.5
[2023-06-06 09:28] VITALS: BP 131/75; PULSE 80
[2023-06-06 09:51] VITALS: BP 124/64; PULSE 77
[2023-06-06 10:02] VITALS: BP 124/64; PULSE 77
== END 2023-06-06 09:50 ==
LOC: OPOB 09:14 → OBGYN 09:14
PROVIDERS: PCP Family Medicine; Visit Provider Family Medicine
DX: O26.899 Other specified pregnancy related conditions, unspecified trimester (principal); Z3A.00 Weeks of gestation of pregnancy not specified
CPT/HCPCS: 59025; 99211

== ENCOUNTER 2023-06-14 08:54 | Outpatient (CLI) | payer MEDICAID, SELFPAY ==
[2023-06-14 08:55] VITALS: BMI 48.7
[2023-06-14 09:15] VITALS: BP 131/64; PULSE 76
[2023-06-14 09:36] VITALS: BP 128/63; PULSE 71
[2023-06-14 10:00] VITALS: BP 128/63; PULSE 71
== END 2023-06-14 09:45 | disposition home or self-care (01) ==
LOC: OPOB 08:54 → OBGYN 08:55
PROVIDERS: Absent Provider Family Medicine; PCP Family Medicine; Visit Provider Family Medicine
DX: O26.899 Other specified pregnancy related conditions, unspecified trimester (principal); Z3A.00 Weeks of gestation of pregnancy not specified
CPT/HCPCS: 59025; 99211

== ENCOUNTER 2023-06-17 08:51 | Outpatient (CLI) | payer MEDICAID, SELFPAY ==
[2023-06-17 08:59] VITALS: RESP 16
[2023-06-17 09:01] VITALS: BP 141/68; PULSE 83
[2023-06-17 09:08] VITALS: BMI 48.9
[2023-06-17 09:22] VITALS: BP 170/88; PULSE 78
[2023-06-17 09:28] VITALS: BP 138/64; PULSE 80; RESP 16
== END 2023-06-17 09:28 ==
LOC: OPOB 08:54 → OBGYN 08:55
PROVIDERS: PCP Family Medicine; Visit Provider Family Medicine
DX: O16.9 Unspecified maternal hypertension, unspecified trimester (principal); Z3A.00 Weeks of gestation of pregnancy not specified
CPT/HCPCS: 59025; 99211

== ENCOUNTER 2023-06-20 08:36 | Outpatient (CLI) | payer MEDICAID, SELFPAY ==
[2023-06-20 08:45] VITALS: BP 145/83; PULSE 81
[2023-06-20 08:48] VITALS: BP 151/88; PULSE 86
[2023-06-20 09:04] VITALS: BP 127/69; PULSE 79
[2023-06-20 09:18] VITALS: BP 128/66; PULSE 77
== END 2023-06-20 09:33 ==
LOC: OPOB 08:37 → OBGYN 08:42
PROVIDERS: PCP Family Medicine; Visit Provider Family Medicine
DX: O26.899 Other specified pregnancy related conditions, unspecified trimester (principal); Z3A.00 Weeks of gestation of pregnancy not specified
CPT/HCPCS: 59025

== ENCOUNTER 2023-06-23 08:27 | Outpatient (CLI) | payer MEDICAID, SELFPAY ==
[2023-06-23 08:43] VITALS: BP 172/92; PULSE 76
[2023-06-23 09:01] VITALS: BP 119/71; PULSE 73
[2023-06-23 09:16] VITALS: BP 122/75; PULSE 75
[2023-06-23 09:25] VITALS: BP 122/75; PULSE 75
== END 2023-06-23 09:25 | disposition home or self-care (01) ==
LOC: OPOB 08:30 → OBGYN 08:34
PROVIDERS: PCP Family Medicine; Visit Provider Family Medicine
DX: O24.419 Gestational diabetes mellitus in pregnancy, unspecified control (principal); Z3A.00 Weeks of gestation of pregnancy not specified
CPT/HCPCS: 59025; 99211

== ENCOUNTER 2023-06-24 05:10 | Inpatient (IN) | payer MEDICAID, SELFPAY ==
[2023-06-24] VITALS (33 sets, daily range): BP systolic 103–189; BP diastolic 55–103; PULSE 58–94; RESP 15–17; TEMP 36.6–36.8; O2SAT 97–99; BMI 48.9
[2023-06-24 06:32] LABS: Basophils % 0.2 %; Eosinophils % 0.4 %; Hematocrit 32.7 % (36-47); Lymphocytes # 1.6 10^3/uL (0.8-4.8); Lymphocytes % 17.9 %; Mean Corpuscular Hemoglobin 28.1 pg (27-33); Mean Corpuscular Volume 84.9 fl (85-98); Mean Platelet Volume 9.9 fL (7.4-10.4); Monocytes # 0.6 10^3/uL (0.2-0.9); Monocytes % 6.5 %; Neutrophils # 6.78 10^3/uL (1.8-7.7); Neutrophils % 74.2 %; Nucleated Red Blood Cells % 0 %; Platelet Count 246 10^3/cmm (157-399); Red Blood Count 3.85 10^6/uL (3.85-5.65); Red Cell Distribution Width 15.9 % (12.1-15.1); White Blood Count 9.14 10^3/uL (3.29-11.43)
[2023-06-24] MEDS: metoclopramide 5 mg/mL SDV 2 mL 10 MG IVP (06:55)
[2023-06-24] MEDS: citric acid-sodium citrate 30 mL UDC PO (06:55)
[2023-06-24] MEDS: famotidine 20 mg/2 mL INJ IVP (06:55)
--- NOTE | 2023-06-24 07:01 | PM.OPHPUD ---
Labor & Delivery H&P Update Date of Procedure: June 24, 2023 Date H&P Performed: 06/23/23 Admission Diagnosis: IUP at 39 weeks gestation Prior sections Chronic hypertension Morbid obesity hx of pre-eclampsia in prior Permanent surgical sterilization requested Planned procedure: Operation Date: 06/24/23 07:20 Proposed Procedures p Section O32.1,06780(Not Applicable) - Joycelyn aLgos MD bilateral tubal ligation
--- NOTE | 2023-06-24 08:01 | P.ANESUD_ITS ---
Pre-Anesthetic Update Pre-Anesthetic Assessment: Date of Surgery/Procedure: 06/24/23 Preop Isha gnosis: Repeat and PPTL Proposed Procedure: Operation Date: 06/24/23 07:20 Proposed Procedures p Section O32.1,64821(Not Applicable) - Joycelyn Lagos MD Any changes to Pre-Anesthetic Assessment?: No Last Intake: Intake Last Liquid Date 06/23/23 Last Liquid Time 23:00 Last Solid Date 06/23/23 Last Solid Time 19:30 Labs Last 48hrs: Short CBC 06/24/23 Range/Units 06:12 WBC 9.14 (3.29-11.43) 10^ 3/uL Hgb 10.80 L (11.27-16.99) g/ dL Hct 32.7 L (36-47) % MCV 84.9 L (85-98) fl Plt Count 246 (157-399) 10^3/c mm Neut % (Auto) 74.2 % Neut # (Auto) 6.78 (1.8-7.7) 10^3/u L Blood Bank 06/24/23 06:12 Blood Type A Positive Rho(D) Type Rh positive Antibody Screen Negative Vitals: Pulse Rate 82 06/24/23 06:51 Respiratory Effort Spontaneous, Non- Labored 06/24/23 05:10 Respiratory Depth Normal 06/24/23 05:10 Respiratory Patter n Normal 06/24/23 05:10 Blood Pressure 120/71 06/24/23 06:51 Oxygen Delivery Me thod Room Air 06/24/23 05:10 Exam: Pre-Anes Outpt Exam: alert, oriented x 3, clear to auscultation bilaterally and regular rate & rhythm
--- NOTE | 2023-06-24 09:12 | P.OP_ITS ---
Operative Report Date of procedure: June 24, 2023 Pre-op diagnosis: IUP at 39 weeks gestation Prior section x 3 Desired permanent surgical sterilization Chronic hypertension Morbid obesity Post-op diagnosis: Same Procedure done: Repeat low-transverse section Via Pfannenstiel skin incision Bilateral tubal ligation Specimens removed/disposition: Vertex male infant weight 3570 g, Apgars 8 and 9 Pathology: Segments of right and left fallopian tubes Surgeon: Joycelyn Lagos MD Estimated blood loss (mL): 500 IV fluids (mL): 2,000 Urine output (mL): 150 Complications: Significant scar tissue Procedure: After informed consent the patient was taken to the OR where spinal anesthesia was administered. She was prepped and draped in normal sterile fashion in dorsal supine position with a left lateral tilt. A Pfannenstiel skin incision was made through the prior scar and carried through to the underlying layer of fascia sharply. The fascial incision was then extended laterally using the Mayos. The fascial layer was moderately scarred to the underlying rectus muscles. The fascia was grasped with Hampton clamps and the underlying rectus muscles were carefully dissected off. The rectus muscles were at the midline sharply using a scalpel. There was a significant amount of scar tissue involving peritoneum, omentum and the anterior uterine wall. This was carefully dissected through using both the scalpel and Mayos. Once the anterior uterine wall was free from the peritoneum the incision site was manually stretched. The bladder blade was inserted. Uterine incision was made in a transverse fashion in the lower uterine segment. Amniotic rupture membranes was performed using an Allis clamp and moderately thick meconium fluid was present. The infant was delivered in vertex presentation atraumatically with reduction of nuchal cord x 1 at delivery. The was suctioned at delivery the cord was clamped and cut. The infant was handed to the waiting pediatric nurse. Cord blood was obtained. The placenta was delivered grossly intact using fundal pressure. The uterus was then exteriorized from the abdomen and the uterine incision was repaired using 0 chromic in a running locked fashion. A second layer of the vicki e suture was used in an imbricating manner. There was a small amount of midline bleeding and pressure was applied while we performed the tubal ligation. The left fallopian tube was grasped with a [place] and a proximal portion of the tube was ligated and excised. Cut portions of the fallopian tube were coagulated using the Bovie. Tubal ostia were visualized. Segment of the tube was sent to pathology. The right fallopian tube was then grasped with a [place]dale and a proximal portion of the tube was ligated and excised. It was noted that the tube was adhered to the ovary. The cut portions of the tube were coagulated using the Bovie. Tubal ostia were identified. Segment of the tube was sent to pathology. The uterine incision was then reinspected for hemostasis and there was still a small amount of oozing from the midline. 2 [id number] sutures using 0 chromic on a CT1 were placed and hemostasis was obtained. There was a small amount of bleeding on the anterior uterus where adhesion lysis was performed. This was coagulated using the Bovie. The uterus was then returned to the abdomen. Irrigation was used to clear the gutters of clots and debris and the uterine incision was reinspected for hemostasis. The peritoneum and midline scar tissue was then reapproximated using 2-0 Vicryl. The subfascial tissue was inspected for hemostasis and the fascia was then reapproximated using 0 Vicryl in a running fashion. The subcutaneous tissue was irrigated. The subcutaneous tissue was then reapproximated using 4-0 Vicryl in a running fashion. The skin was then reapproximated using 4-0 Vicryl on a Lake needle. Steri-Strips and a pressure bandage were applied and patient went to recovery in good condition. Sponge instrument and needle counts were correct.
--- NOTE | 2023-06-24 09:26 | ANE.PACU2 ---
Inpatient post-anesthesia follow up: Airway intact: Yes Vital signs: Temperature Pulse Rate 82 Respiratory Rate Blood Pressure 120/71 Pulse Oximetry Oxygen Delivery Me thod Room Air Oxygen Flow Rate Fraction of Inspir ed Oxygen Hydration adequate: Yes Nausea and vomiting: No Pain level: 2 Mental status: Baseline
[2023-06-24] MEDS: lanolin oint 7 gm 1 APPLIC TOPICAL (13:58)
[2023-06-24] MEDS: ketorolac 30 mg/mL INJ IVP ×2 (15:13→20:07)
[2023-06-24] MEDS: HYDROcodone-acetaminophen 5-325 mg Tablet PO (16:25)
[2023-06-24] MEDS: docusate sodium 100 mg Capsule PO (16:26)
[2023-06-24] MEDS: ondansetron 2 mg/ML SDV 2 mL 4 MG IVP (17:22)
[2023-06-24 20:23] LABS: Mean Corpuscular HGB Conc 32.7 g/dL (30-55); Mean Corpuscular Hemoglobin 27.8 pg (27-33); Mean Corpuscular Volume 85.2 fl (85-98); Platelet Count 237 10^3/cmm (157-399); Red Blood Count 3.52 10^6/uL (3.85-5.65); Red Cell Distribution Width 15.9 % (12.1-15.1); White Blood Count 11.05 10^3/uL (3.29-11.43)
--- NOTE | 2023-06-24 20:56 | PC.NURSE ---
This play writer was standby assistance to pt as she walked two laps around labor and delivery unit. Pt had no complaints and tolerated well. Pt reports passing flatus.
[2023-06-25] MEDS: hyDROXYzine 25 mg Capsule 50 MG PO (01:43)
[2023-06-25] MEDS: ketorolac 30 mg/mL INJ IVP (02:25)
[2023-06-25] MEDS: HYDROcodone-acetaminophen 5-325 mg Tablet PO ×3 (02:28→16:18)
[2023-06-25 04:06] VITALS: BP 135/78; PULSE 72; RESP 18; TEMP 36.9; O2SAT 98
[2023-06-25] MEDS: docusate sodium 100 mg Capsule PO ×2 (08:42→17:49)
[2023-06-25] MEDS: prenatal vitamin Capsule 1 CAP PO (08:43)
[2023-06-25] MEDS: ferrous sulfate EC 325 mg Tablet PO ×2 (08:43→17:49)
[2023-06-25] MEDS: ibuprofen 800 mg tablet PO ×3 (09:00→20:30)
--- NOTE | 2023-06-25 10:09 | P.PN_ITS ---
Subjective 2 Subjective: POD #1 repeat with tubal ligation ambulating, took a shower this morning, passing gas and had a bm. hurting more today as expected. Vitals/I&O/Wt Last Vital Signs Temp 98.4 F 06/25/23 04:06 Pulse 72 06/25/23 04:06 Resp 18 06/25/23 04:06 BP 135/78 06/25/23 04:06 Pulse Ox 98 06/25/23 04:06 O2 Del Method Room Air 06/25/23 04:06 06/24/23 06/25/23 06/25/23 22:59 06:59 14:59 Output Total 800 / 950 300 / 1250 Balance -800 / -950 -300 / -1250 Weight last 48 hrs Weight 129.274 kg Physical Exam 2 Narrative: alert and oriented, RRR, CTA B, soft appropriate tenderenss, inscsion c/i with moist steristrips since she just showered. 2+ edema but no calf tenderness. Urinary Catheter Management: Freitas Latex: Cath Placed During This Visit: yes, but has since been removed by the nurse Reason for Continuing Indwelling Catheter: Decision to DC Catheter Urinary Catheter Date of Insertion: 06/24/23 Urinary Catheter Time of Insertion: 07:20 Date Urinary Catheter Removed: 06/25/23 Time Urinary Catheter Discontinued: 01:44 Data 06/24/23 20:10 A&P Assessment and plan (1) Status post repeat low transverse section: Doing well, cont routine postop care. (2) Chronic hypertension affecting : She has occasional mildly elevated BPs outside of and typically is not on any meds. We will hold her BP med for now and see how she runs without it . Attestations 2 Medical Necessity Statement*: routine postoperative care. Coding Level of Care Code Acute Code for Chg Fwd Diagnoses Status post repeat low transverse section Z98.891 Chronic hypertension affecting O10.919
[2023-06-25 12:14] VITALS: BP 138/74; PULSE 78; RESP 16; O2SAT 98
[2023-06-25 16:29] VITALS: BP 148/90; PULSE 70; RESP 16
[2023-06-25 22:00] VITALS: BP 130/78; PULSE 72; RESP 17; TEMP 36.8
[2023-06-25] MEDS: acetaminophen 325 mg Tablet 650 MG PO (22:55)
[2023-06-26 03:49] VITALS: BP 128/69; PULSE 62; RESP 16; TEMP 36.6
[2023-06-26] MEDS: HYDROcodone-acetaminophen 5-325 mg Tablet PO ×2 (05:14→11:42)
[2023-06-26] MEDS: ferrous sulfate EC 325 mg Tablet PO (09:30)
[2023-06-26] MEDS: prenatal vitamin Capsule 1 CAP PO (09:30)
[2023-06-26] MEDS: ibuprofen 800 mg tablet PO (09:30)
[2023-06-26] MEDS: docusate sodium 100 mg Capsule PO (09:30)
--- NOTE | 2023-06-26 09:51 | P.DS_ITS ---
Discharge Providers Date of Admission: 06/24/23 05:10 Date of Discharge: June 26, 2023 Attending Provider at Admission: Joycelyn Lagos MD Attending Provider at Discharge: Joycelyn Lagos MD Primary Care Provider: Joycelyn Lagos MD Diagnoses at Discharge Discharge Diagnosis (1) Status post repeat low transverse section: Status: Acute (2) Chronic hypertension affecting : Status: Acute Reason for Visit Reason for Visit: c Section Hospital Course Hospital Course This is a 27-year-old G4 now P4 who underwent a repeat section with bilateral tubal ligation. She is now postop day #2 and doing well. She is ambulating, tolerating a regular diet, has pain control with oral medications and is comfortable with discharge home. Physical Exam Narrative: Alert and oriented, sitting up in bed, heart regular rate and rhythm, lungs clear to auscultation bilaterally, abdomen is soft with appropriate postoperative tenderness, incision is clean dry and intact, extremities have 2+ edema but no calf tenderness Urinary Catheter Management: Freitas Latex: Cath Placed During This Visit: yes, but has since been removed by the nurse Reason for Continuing Indwelling Catheter: Decision to DC Catheter Urinary Catheter Date of Insertion: 06/24/23 Urinary Catheter Time of Insertion: 07:20 Date Urinary Catheter Removed: 06/25/23 Time Urinary Catheter Discontinued: 01:44 Discharge Data Studies Completed and Pending Pending at discharge Category Date Time Status Pathology: Surgical [PTH] Routine Pth 06/24/23 15:00 Ordered Laboratory Results WBC 11.05 10^3/uL (3.29-11.43) 06/24/23 20:10 RBC 3.52 10^6/uL (3.85-5.65) L 06/24/23 20:10 Hgb 9.80 g/dL (11.27-16.99) L 06/24/23 20:10 Hct 30.0 % (36-47) L 06/24/23 20:10 MCV 85.2 fl (85-98) 06/24/23 20:10 MCH 27.8 pg (27-33) 06/24/23 20:10 MCHC 32.7 g/dL (30-55) 06/24/23 20:10 RDW 15.9 % (12.1-15.1) H 06/24/23 20:10 Plt Count 237 10^3/cmm (157-399) 06/24/23 20:10 MPV 10.0 fL (7.4-10.4) 06/24/23 20:10 Neut % (Auto) 74.2 % 06/24/23 06:12 Lymph % (Auto) 17.9 % 06/24/23 06:12 Hockley % (Auto) 6.5 % 06/24/23 06:12 Eos % (Auto) 0.4 % 06/24/23 06:12 Baso % (Auto) 0.2 % 06/24/23 06:12 Neut # (Auto) 6.78 10^3/uL (1.8-7.7) 06/24/23 06:12 Lymph # (Auto) 1.6 10^3/uL (0.8-4.8) 06/24/23 06:12 [place]ockley # (Auto) 0.6 10^3/uL (0.2-0.9) 06/24/23 06:12 Eos # (Auto) 0.0 10^3/uL (0.0-0.8) 06/24/23 06:12 Baso # (Auto) 0.0 10^3/uL (0.0-0.1) 06/24/23 06:12 Nucleated RBC % (auto) 0 % 06/24/23 06:12 Nucleated RBCs # 0.0 /100WBC 06/24/23 06:12 Blood Type A Positive 06/24/23 06:12 Rho(D) Type Rh positive 06/24/23 06:12 Antibody Screen Negative 06/24/23 06:12 Vitals Last Vital Signs Temp 97.9 F 06/26/23 03:49 Pulse 62 06/26/23 03:49 Resp 16 06/26/23 03:49 BP 128/69 06/26/23 03:49 Pulse Ox 98 06/25/23 12:14 O2 Del Method Room Air 06/26/23 03:49 Discharge Plan Discharge Patient Disposition: Home Condition: Stable Prescriptions: New ibuprofen 800 mg Tablet 800 mg PO TID PRN (Reason: Abdominal Discomfort) Qty: 30 0RF hydrocodone-acetaminophen 5-325 mg Tablet 1 - 2 tab PO Q4H PRN (Reason: Moderate To Severe Pain) Qty: 15 0RF docusate sodium 100 mg Capsule 100 mg PO BID 30 Days Qty: 60 0RF Continued metoprolol tartrate 50 mg 50 mg PO 2XD capsule 1 cap PO DAILY omeprazole 20 mg 20 mg PO 1XD Discontinued Zofran 4 mg 4 mg PO 3XD Discharge Orders: Discharge Order (Routine); Ordered 06/26/23 Ordered By: Joycelyn Lagos Referrals: Joycelyn Lagos MD [Primary Care Provider] - 4-7 days () Discharge Diet: Usual diet Discharge Activity: Limit activity as instructed Patient Instructions: Depression (DC), Bleeding (DC), Preeclampsia and Eclampsia After Delivery (GEN), Hemorrhage (DC), OB - Cristobal/Demond, OB Discharge Report, OB Food/Drug Interaction Guide, OB Care at Home, Opioid Safety Discharge Attestations Time Spent in Discharge Care*: less than 30 min Quality Metrics Clinical Quality Measures [ No reported AMI, CVA or VTE this stay] Coding Level of Care Code Acute Code for Chg Fwd Diagnoses Status post repeat low transverse section Z98.891 Chronic hypertension affecting O10.919
[2023-06-26 12:00] VITALS: BP 134/84; PULSE 62; RESP 16; TEMP 36.6
== END 2023-06-26 12:00 | disposition home or self-care (01) | DRG 784 ==
PROVIDERS: Admitting Provider Family Medicine; PCP Family Medicine; Visit Provider Family Medicine
PROC: 10D00Z1 Extraction of Products of Conception, Low, Open Approach (ICD-10-PCS; CPT 59514; principal; 2023-06-24 07:00)
DX: O34.211 Maternal care for low transverse scar from previous cesarean delivery (principal); O10.02 Pre-existing essential hypertension complicating childbirth; O99.214 Obesity complicating childbirth; E66.01 Morbid (severe) obesity due to excess calories; O77.0 Labor and delivery complicated by meconium in amniotic fluid; O69.81X0 Labor and delivery complicated by cord around neck, without compression, not applicable or unspecified; Z30.2 Encounter for sterilization; Z3A.39 39 weeks gestation of pregnancy; Z37.0 Single live birth
CPT/HCPCS: 36415; 51702; 59025; 59409; 85025; 85027; 86850; 86900; 88302; 96374; J1885; J2274; J2371; J2405; J2765; J3010; J3490; J7030

== ENCOUNTER → 2024-10-03 13:26 | Outpatient (BNVA) | payer MEDICAID, SELFPAY | PROVIDERS: PCP Registered Nurse; Visit Provider Registered Nurse | DX: N89.8 Other specified noninflammatory disorders of vagina (principal) | CPT/HCPCS: 81000; 87070; 87205 ==

== ENCOUNTER 2024-10-12 07:26 | Outpatient (CLI) | payer MEDICAID, SELFPAY ==
--- NOTE | 2024-10-12 07:45 | US_ITS ---
WS: [id number] RIGHT UPPER QUADRANT ULTRASOUND HISTORY: K80.20 - Calculus of gallbladder without cholecystitis COMPARISON: None available. Liver: 16.0 cm in length. Liver is top normal size. Marked attenuation and hepatic steatosis. The entire liver is poorly visualized. No intrahepatic duct dilatation. Portal Vein: Normal hepatopetal flow with monophasic waveform. Gallbladder: Normally distended gallbladder with no stones or wall thickening. CBD: 0.2 cm Pancreas: Not visualized. Right kidney: 9.1 cm in length. Limited but unremarkable. Aorta and IVC: Not visualized well. No ascites. US/US gall bladder [id number] IMPRESSION: 1. Technically difficult RIGHT upper quadrant ultrasound evaluation. 2. Negative gallbladder. 3. Mildly prominent liver with severe hepatic steatosis.
== END 2024-10-12 07:27 | disposition home or self-care (01) ==
PROVIDERS: PCP Registered Nurse; Visit Provider Registered Nurse
DX: K80.20 Calculus of gallbladder without cholecystitis without obstruction (principal); K76.0 Fatty (change of) liver, not elsewhere classified; R93.2 Abnormal findings on diagnostic imaging of liver and biliary tract
CPT/HCPCS: 76705

== ENCOUNTER → 2024-10-19 11:28 | Outpatient (BNVA) | payer MEDICAID, SELFPAY | PROVIDERS: PCP Registered Nurse; Visit Provider Registered Nurse | DX: K80.20 Calculus of gallbladder without cholecystitis without obstruction (principal); E66.01 Morbid (severe) obesity due to excess calories; Z13.1 Encounter for screening for diabetes mellitus | CPT/HCPCS: 80053; 80061; 83036; 85025 ==

== ENCOUNTER → 2025-02-13 10:53 | Outpatient (BNVA) | payer MEDICAID, SELFPAY | PROVIDERS: PCP Registered Nurse; Visit Provider Registered Nurse | DX: R19.8 Other specified symptoms and signs involving the digestive system and abdomen (principal); E66.01 Morbid (severe) obesity due to excess calories; K76.0 Fatty (change of) liver, not elsewhere classified | CPT/HCPCS: 85651; 86003; 86008; 86140 ==